=== PATIENT | female | born 1945 | race Caucasian/White ===

== ENCOUNTER → 2016-03-27 | Outpatient (REF) | payer MEDICARE, MEDICAID | LOC: M SFHCCLAY 15:10 | PROVIDERS: ATTEND Family Medicine | DX: I10 Essential (primary) hypertension (principal) ==

== ENCOUNTER → 2016-05-10 | Outpatient (CLI) | payer MEDICARE, MEDICAID ==
[2016-05-10 14:01] LABS: CALCIUM LEVEL 8.5 MG/DL (8.8-10.2); CREATININE FOR GFR 1.01 MG/DL (0.55-1.02); GLOMERULAR FILTRATION RATE 57.5 (>39); POTASSIUM SERUM 4.1 MEQ/L (3.5-5.1)
== END ==
LOC: M LAB 13:03
PROVIDERS: ATTEND Family Medicine
DX: I10 Essential (primary) hypertension (principal)

== ENCOUNTER → 2016-05-30 | Outpatient (REF) | payer MEDICARE, MEDICAID ==
[2016-05-31 11:51] LABS: MEAN CORPUSCULAR HEMOGLOBIN 26.5 pg (27.0-33.0); MEAN CORPUSCULAR HGB CONC 30.3 g/dl (32.0-36.5); MEAN CORPUSCULAR VOLUME 87.7 fl (80.0-96.0); RED CELL DISTRIBUTION WIDTH 14.4 % (11.5-14.5); WHITE BLOOD COUNT 6.2 K/mm3 (4.0-10.0)
== END ==
LOC: M SFHCCLAY 14:35
PROVIDERS: ATTEND Family Medicine
DX: E11.9 Type 2 diabetes mellitus without complications (principal); I25.10 Atherosclerotic heart disease of native coronary artery without angina pectoris; R53.83 Other fatigue
CPT/HCPCS: 83036; 85027; G0463

== ENCOUNTER → 2016-06-21 | Outpatient (CLI) | payer MEDICARE, MEDICAID ==
[2016-06-21 13:32] LABS: CREATININE FOR GFR 1.06 MG/DL (0.55-1.02); GLOMERULAR FILTRATION RATE 54.2 (>39); POTASSIUM SERUM 4.1 MEQ/L (3.5-5.1)
== END ==
LOC: M LAB 11:22
PROVIDERS: ATTEND Family Medicine
DX: I15.9 Secondary hypertension, unspecified (principal)

== ENCOUNTER 2016-07-16 12:39 | Inpatient (IN) | payer MEDICARE, MEDICAID ==
[2016-07-16] VITALS (37 sets, daily range): BP systolic 92–176; BP diastolic 50–70
[~2016-07-16] VITALS: Ht 154.9 cm; Wt 75.0 kg
[2016-07-16] MEDS ORDERED: EPINEPHrine 1MG/10ML SYRINGE 1.5IN As Ordered ONE (13:24)
[2016-07-16] MEDS ORDERED: DOPamine HCL 400 MG in APPROPRIATE DILUENT 1 EA IV SCH (13:45)
--- NOTE | 2016-07-16 13:58 | REP ---
Clinical: Chest pain. Comparison: 12/09/2015. Findings: Endotracheal tube tip approximately 2 cm from the blayne. Cardiac silhouette is stable. Diffuse alveolar and interstitial infiltrates involve the entire left hemithorax as well as the right perihilar region suggesting multifocal pneumonia. No obvious effusion. No pneumothorax. Skeletal structures stable. Impression: Diffuse alveolar and interstitial infiltrates involving the entire left hemithorax and right perihilar region. The endotracheal tube is approximately 2 cm from the blayne. Signed by Jone Jrodan MD 07/16/2016 01:49 P
[2016-07-16] MEDS ORDERED: NOREPINEPHRINE BITARTRATE 8 MG in D5W 500 ML IV SCH ×2 (14:00→14:12)
[2016-07-16 14:01] LABS: ABG BASE EXCESS -6.2 (-2.0-2.0); ABG STANDARD HCO3 18.6 MEQ/L (22.0-26.0); ABG TOTAL CO2 29.2 MEQ/L (23.0-31.0)
[2016-07-16 14:02] LABS: INR 1.24
[2016-07-16 14:08] LABS: ABG PARTIAL PRESSURE CO2 105.8 mmHg (35.0-45.0); ABG PARTIAL PRESSURE O2 37.4 mmHg (75.0-100.0); ABG pH (ARTERIAL) 7.008 UNITS (7.350-7.450)
[2016-07-16] MEDS ORDERED: ATROPINE SULF 1MG/10ML SYRINGE (J0461) IV STA ×3 (14:15)
[2016-07-16 14:18] LABS: ALBUMIN 2.8 GM/DL (3.2-5.2); ALBUMIN/GLOBULIN RATIO 0.97 (1.00-1.93); ALKALINE PHOSPHATASE 71 U/L (45-117); ALT/SGPT 60 U/L (12-78); ANION GAP 10 MEQ/L (8-16); AST/SGOT 106 U/L (15-37); BILIRUBIN,DIRECT < 0.1 MG/DL (0.0-0.2); BILIRUBIN,TOTAL 0.2 MG/DL (0.2-1.0); BLOOD UREA NITROGEN 21 MG/DL (7-18); CALCIUM LEVEL 7.1 MG/DL (8.8-10.2); CARBON DIOXIDE LEVEL 29 MEQ/L (21-32); CHLORIDE LEVEL 103 MEQ/L (98-107); CREATININE FOR GFR 1.73 MG/DL (0.55-1.02); GLOMERULAR FILTRATION RATE 30.8 (>39); GLUCOSE, FASTING 312 MG/DL (83-110); POTASSIUM SERUM 4.2 MEQ/L (3.5-5.1); SODIUM LEVEL 142 MEQ/L (136-145); TOTAL PROTEIN 5.7 GM/DL (6.4-8.2)
[2016-07-16] MEDS ORDERED: NOREPINEPHRINE 4 MG/4 ML AMP As Ordered ONE ×2 (14:18→14:29)
[2016-07-16] MEDS ORDERED: AMIODARONE 150MG/3ML INJ (J0282) IVP STA (14:20)
[2016-07-16] MEDS ORDERED: EPINEPHrine 1MG/10ML SYRINGE 1.5IN IV STA ×8 (14:22)
[2016-07-16] MEDS ORDERED: SODIUM BICARBONATE 8.4% INJ 50 ML SYRINGE As Ordered ONE (14:23)
[2016-07-16] MEDS ORDERED: SODIUM BICARBONATE 8.4% INJ 50 ML SYRINGE IV STA ×3 (14:25→14:51)
[2016-07-16 14:34] LABS: BASO % 0.4 % (0.0-1.0); EOS # 0.2 K/mm3 (0.0-0.50); EOS % 1.3 % (0.0-3.0); LARGE UNSTAINED CELL # 0.1 K/mm3 (0.0-0.4); LARGE UNSTAINED CELL % 0.8 % (0.0-4.0); MEAN CORPUSCULAR HEMOGLOBIN 26.4 pg (27.0-33.0); MEAN CORPUSCULAR HGB CONC 29.2 g/dl (32.0-36.5); MEAN CORPUSCULAR VOLUME 90.5 fl (80.0-96.0); MONO # 0.3 K/mm3 (0.0-0.8); MONO % 3.1 % (0.0-5.0); NEUTROPHILS # 7.6 K/mm3 (1.8-7.7); NEUTROPHILS % 67.5 % (36.0-66.0); PLATELET COUNT, AUTOMATED 252 k/mm3 (150-450); RED CELL DISTRIBUTION WIDTH 15.2 % (11.5-14.5); WHITE BLOOD COUNT 11.3 K/mm3 (4.0-10.0)
[2016-07-16] MEDS ORDERED: METF1000 PO (14:41)
[2016-07-16] MEDS ORDERED: FURO40TA2 PO (14:41)
[2016-07-16] MEDS ORDERED: SIMV40TA2 PO (14:41)
[2016-07-16] MEDS ORDERED: GABA-279 PO (14:41)
[2016-07-16] MEDS ORDERED: CARV25TA PO (14:41)
[2016-07-16] MEDS ORDERED: FENO54TA2 PO (14:41)
[2016-07-16] MEDS ORDERED: AMIT50TA PO (14:41)
[2016-07-16] MEDS ORDERED: HYDR-3716 PO (14:41)
[2016-07-16] MEDS ORDERED: CARI350T20 PO (14:41)
[2016-07-16] MEDS ORDERED: REST0.05 OU (14:41)
[2016-07-16] MEDS ORDERED: LISI40TAB PO (14:41)
[2016-07-16] MEDS ORDERED: ASPI81TA7 PO (14:43)
[2016-07-16] MEDS ORDERED: RANI150T PO (14:43)
[2016-07-16] MEDS ORDERED: DIPH50TA3 PO (14:43)
[2016-07-16 14:56] LABS: ABG STANDARD HCO3 26.6 MEQ/L (22.0-26.0); ABG TOTAL CO2 34.4 MEQ/L (23.0-31.0)
[2016-07-16 14:58] LABS: ABG PARTIAL PRESSURE CO2 77.4 mmHg (35.0-45.0); ABG PARTIAL PRESSURE O2 41.8 mmHg (75.0-100.0); ABG pH (ARTERIAL) 7.234 UNITS (7.350-7.450)
--- NOTE | 2016-07-16 15:06 | ECGEPIP ---
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
[2016-07-16 15:27] LABS: ADD MORPHOLOGY? YES
[2016-07-16 15:31] LABS: HYPOCHROMASIA 2+
[2016-07-16 15:32] LABS: ANISOCYTOSIS 1+
[2016-07-16] MEDS ORDERED: FUROSEMIDE 40 MG/4 ML VIAL (J1940) IV ONE ×2 (15:45→16:00)
[2016-07-16] MEDS: PANTOPRAZOLE 40MG INJ (PROTONIX) (C9113) IV SCH (16:01)
[2016-07-16 16:44] LABS: ABG HCO3 25.6 MEQ/L (22.0-26.0); ABG PARTIAL PRESSURE CO2 40.9 mmHg (35.0-45.0); ABG PARTIAL PRESSURE O2 59.6 mmHg (75.0-100.0); ABG STANDARD HCO3 25.2 MEQ/L (22.0-26.0); ABG TOTAL CO2 26.9 MEQ/L (23.0-31.0); ABG pH (ARTERIAL) 7.415 UNITS (7.350-7.450)
--- NOTE | 2016-07-16 16:53 | REP ---
Clinical: Pain and swelling . Technique: Low scale and color Doppler evaluation using linear high frequency transducer. Findings: Ultrasound examination of the right and left lower extremity deep venous structures from the common femoral vein to the popliteal vein demonstrates normal compressibility flow and wave patterns in response to respiration and augmentation. There is no evidence for deep venous thrombosis. Impression: No evidence for deep venous thrombosis. Signed by Jone Jordan MD 07/16/2016 04:45 P
--- NOTE | 2016-07-16 17:14 | CCN ---
DATE: 07/16/2016 I was called to the emergency department to evaluate this 71-year-old female post resuscitation from bradycardic arrest. 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 I was called after of pulse had been obtained with a Doppler and an endotracheal tube had been placed. On my arrival, the patient was obtunded, Zoltan coma scale 3, an endotracheal tube in been placed. The monitor was revealing narrow complex is 40-50 per minute. Femoral pulses were able to be obtained with a Doppler. No blood work has been were returned yet. A hest x-ray was just being performed and showed the endotracheal tube to be in good position and significant interstitial edema left greater than right. Pulses were lost thereafter and CPR reinitiated, epinephrine was given once again. air sampling and monitoring showed bradycardia, then narrow complex is 60-70 beats per minute with a pulse by Doppler. Central venous pressure catheter was placed promptly into the right subclavian site and IV dopamine infused, Blood gases showed hypoxemia and mixed acidosis, IV bicarb was given, dopamine was increased. Secretions were very frothy and oxygen saturation was quite low. Nebulized alcohol was given with good results. An orogastric tube and Christy catheters were placed and I contacted cardiology and the primary care provider's office for further information. At bedside, her temperature is 97, pulse rate 60, respirations 20 with mechanically ventilated breaths. Blood pressure was mean arterial of 60. HEENT: Pupils were 8 mm. I am unable to assess accurately response to light. Endotracheal tube was at 23 cm. Heart sounds were regular, distant breath sounds were diminished with rales. Abdomen: Soft. Extremities: Cool. Pulses were appreciated with Doppler. DIAGNOSTIC STUDIES: Initial arterial blood gas showed a pH of 7.00, pO2 105, CO2 37. Repeat arterial blood gases showed a pH of 7.23, pCO2 77, pO2 41. Her white cell count is 11.3, hemoglobin 87, hematocrit 29.8, platelet count 252,000. Electrolytes: Sodium 142, potassium 4.2, chloride 103, CO2 29, BUN 21, creatinine 1.73, glucose 312, bilirubin 0.2, AST 106, ALT 60, troponin was 0.02. BNP 499, albumin 2.8, PT 15, PTT 43. THE PRIMARY PROBLEM REQUIRING CRITICAL ATTENTION IS: 1. Bradycardic cardiac arrest. We are infusing dopamine. We will obtain an echocardiogram. Recheck troponins electrocardiogram and consult cardiology. 2. Acute hypoxic hypercarbic respiratory failure. Will initiate mechanical ventilation. Once in the intensive care unit we will change to pressure control and recheck arterial blood gases and place an arterial line. 3. Pulmonary edema. Will check her CVP and initiate diuretics. Given the unilateral nature of the pulmonary edema, I am questioning the possibility of pulmonary embolic disease. We will obtain an ultrasound study of the legs. 4. financial services representative have been engaged in effort to identify contacts for this patient. Family has not been present throughout the resuscitation. 3 hours and 27 minutes spent in provision of bedside critical care and coordination exclusive of procedure time.
[2016-07-16] MEDS ORDERED: GLUCOSE 4 GM CHEW TABLET PO PRN (17:15)
[2016-07-16] MEDS ORDERED: GLUCAGON FOR INJ 1 MG VIAL (J1610) SC PRN (17:15)
[2016-07-16] MEDS ORDERED: DEXTROSE 50% 50 ML SYRINGE IV PRN (17:15)
--- NOTE | 2016-07-16 17:33 | REP ---
Clinical: Pulmonary edema. Line placement. Comparison: 07/16/2016. Findings: The endotracheal tube is approximately 1.9 cm above the blayne. Nasogastric tube courses below left hemidiaphragm. Right subclavian catheter with tip in the right atrium. Complete opacification of the left hemithorax is noted suggesting underlying pleural effusion and consolidation / collapse. The right hemithorax demonstrates trace infrahilar atelectasis without effusion or pneumothorax. Impression: 1. Complete opacification of the left hemithorax compatible with effusion and consolidation / collapse. Trace right infrahilar atelectasis. 2. Lines and tubes as above. Signed by Jone Jordan MD 07/16/2016 05:25 P
--- NOTE | 2016-07-16 17:41 | ECHO ---
DATE OF PROCEDURE: 07/16/2016 REFERRING PHYSICIAN: Kris Márquez MD INDICATION: Respiratory failure, hypotension, status post cardiac arrest. HEIGHT: 155 cm WEIGHT: 75 kg DIMENSIONS: IVS: 1.2 LV: 3.7 LVPW: 1.2 LA: 3.4 Aorta 2.9 FINDINGS: The study is rather limited technical quality. Left ventricle is of normal size. Mild left ventricular hypertrophy is present. There is a septal wall motion abnormality, but overall left ventricular systolic function is normal or near normal. Right ventricle does not appear grossly enlarged. Both atria appear grossly normal. Left atrium does not appear large. Right atrium is probably enlarged. Aortic valve is mildly sclerotic, based on fair visualization it is likely tricuspid. Mitral valve exhibits mild degenerative abnormalities, but leaflet mobility is preserved. Tricuspid valve appears normal. Pulmonic valve was poorly seen but grossly appears normal. Small pericardial effusion is noted. Inferior vena cava is of normal size, but there is no appreciable collapse with respiration. Aortic root is normal. Aortic arch was not visualized. Abdominal aorta appears normal. Doppler interrogation reveals no significant aortic or mitral valve disease. There is approximately mild or moderate tricuspid insufficiency. Calculated pulmonary artery pressure is at least in low 50s, which would correspond to moderate pulmonary hypertension. Pulmonic valve is functionally competent. CONCLUSIONS: 1. Study is of fair technical quality. 2. Normal left ventricle (LV) size with mild left ventricular hypertrophy (LVH), paradoxical septal motion and overall normal or near normal LV systolic function. 3. Right ventricle does not appear grossly dilated. 4. No significant valvular disease. 5. At least moderate pulmonary hypertension. COMMENTS: Subacute bacterial endocarditis (SBE) prophylaxis is not recommended.
--- NOTE | 2016-07-16 18:28 | REP ---
Clinical: Dyspnea. Hypoxemia. Comparison: 11/12/2007. Findings: The endotracheal tube is identified with its tip at the level of the blayne and requires repositioning. A nasogastric tube is identified extending into the stomach in satisfactory position. A right subclavian catheter is identified with tip in the SVC. There is near complete consolidation of the left lung with air bronchograms noted as well as moderate right lower lobe consolidation. The mediastinum and cardiac silhouette are relatively normal for noncontrast examination with mild atherosclerotic changes noted to the coronary arteries and moderate atherosclerotic changes to the thoracic aorta. No pneumothorax. No significant pleural effusion. No obvious significant adenopathy although evaluation is limited by the lack of intravenous contrast enhancement. Surrounding musculoskeletal structures demonstrate age-related degenerative changes. Impression: 1. Endotracheal tube at the blayne requires repositioning. 2. Diffuse consolidations involving the entire left hemithorax and moderate consolidation in the right lower lobe most compatible with multifocal pneumonia. No significant effusion. No pneumothorax. Signed by Jone Jordan MD 07/16/2016 06:20 P
[2016-07-16 18:34] LABS: MEAN CORPUSCULAR HEMOGLOBIN 25.4 pg (27.0-33.0); MEAN CORPUSCULAR HGB CONC 29.7 g/dl (32.0-36.5); RED CELL DISTRIBUTION WIDTH 15.3 % (11.5-14.5); WHITE BLOOD COUNT 15.3 K/mm3 (4.0-10.0)
[2016-07-16 18:37] LABS: MEAN CORPUSCULAR VOLUME 85.4 fl (80.0-96.0)
[2016-07-16] MEDS: HumaLOG INSULIN (NovoLOG) PER UNIT SC SCH (18:40)
[2016-07-16] MEDS ORDERED: AMIODARONE 150MG/3ML INJ (J0282) ONE (18:46)
[2016-07-16] MEDS ORDERED: SODIUM BICARBONATE 8.4% INJ 50 ML SYRINGE ONE (18:46)
[2016-07-16] MEDS ORDERED: ATROPINE SULF 1MG/10ML SYRINGE (J0461) ONE (18:46)
[2016-07-16] MEDS ORDERED: EPINEPHrine 1MG/10ML SYRINGE 1.5IN ONE (18:46)
[2016-07-16] MEDS ORDERED: FUROSEMIDE 100 MG/10 ML VIAL (J1940) IV ONE (19:15)
[2016-07-16] MEDS: ALBUTEROL SULFATE 2.5 MG/0.5 ML INH NEB SOLN NEB SCH (19:41)
[2016-07-16 20:06] LABS: ABG BASE EXCESS 2.7 (-2.0-2.0); ABG DEVICE MECHAN. VENT; ABG HCO3 25.9 MEQ/L (22.0-26.0); ABG PARTIAL PRESSURE CO2 34.5 mmHg (35.0-45.0); ABG PARTIAL PRESSURE O2 75.5 mmHg (75.0-100.0); ABG STANDARD HCO3 26.9 MEQ/L (22.0-26.0); ABG TOTAL CO2 26.9 MEQ/L (23.0-31.0); ABG pH (ARTERIAL) 7.493 UNITS (7.350-7.450)
[2016-07-16] MEDS ORDERED: ETHANOL ALCOHOL 98% INJ 5ML (DEHYDRATED) NEB ONE (20:30)
[2016-07-16] MEDS: DOPamine HCL 400 MG in APPROPRIATE DILUENT 1 EA IV SCH (20:40)
[2016-07-16] MEDS: CHLORHEXIDINE GLUCONATE 0.12 % 15ML UDC (PERIDEX ORAL RINSE) MT SCH (20:42)
[2016-07-16 21:34] LABS: ABG BASE EXCESS 4.1 (-2.0-2.0); ABG HCO3 26.3 MEQ/L (22.0-26.0); ABG PARTIAL PRESSURE CO2 31.1 mmHg (35.0-45.0); ABG PARTIAL PRESSURE O2 56.4 mmHg (75.0-100.0); ABG TOTAL CO2 27.3 MEQ/L (23.0-31.0); ABG pH (ARTERIAL) 7.545 UNITS (7.350-7.450)
[2016-07-16] MEDS: HEPARIN SOD (PORCINE) 5000 UNITS/ML VIAL SQ SCH (21:43)
[2016-07-17] VITALS (74 sets, daily range): BP systolic 115–245; BP diastolic 53–111; O2SAT 94
[2016-07-17] MEDS ORDERED: ATROPINE SULF 1MG/10ML SYRINGE (J0461) ONE (02:08)
[2016-07-17] MEDS ORDERED: ETOMIDATE INJ 20MG/10ML VIAL ONE (02:08)
[2016-07-17] MEDS: DOPamine HCL 400 MG in APPROPRIATE DILUENT 1 EA IV SCH (02:45)
[2016-07-17 06:11] LABS: EOS % 0.1 % (0.0-3.0); LARGE UNSTAINED CELL % 0.4 % (0.0-4.0); LYMPH # 0.7 K/mm3 (1.5-4.5); LYMPH % 5.6 % (24.0-44.0); MEAN CORPUSCULAR HEMOGLOBIN 26.3 pg (27.0-33.0); MEAN CORPUSCULAR HGB CONC 31.9 g/dl (32.0-36.5); MEAN CORPUSCULAR VOLUME 82.3 fl (80.0-96.0); MONO # 0.5 K/mm3 (0.0-0.8); NEUTROPHILS # 10.1 K/mm3 (1.8-7.7); NEUTROPHILS % 89.8 % (36.0-66.0); PLATELET COUNT, AUTOMATED 231 k/mm3 (150-450); RED CELL DISTRIBUTION WIDTH 15.4 % (11.5-14.5); WHITE BLOOD COUNT 11.3 K/mm3 (4.0-10.0)
[2016-07-17] MEDS ORDERED: NITROGLYCERIN 2% OINT 1 GM *U/D* PKT TOP ONE (06:30)
[2016-07-17 06:32] LABS: ABG HCO3 20.8 MEQ/L (22.0-26.0); ABG PARTIAL PRESSURE CO2 24.2 mmHg (35.0-45.0); ABG PARTIAL PRESSURE O2 109.6 mmHg (75.0-100.0); ABG STANDARD HCO3 23.6 MEQ/L (22.0-26.0); ABG TOTAL CO2 21.5 MEQ/L (23.0-31.0); ABG pH (ARTERIAL) 7.552 UNITS (7.350-7.450)
[2016-07-17] MEDS: HumaLOG INSULIN (NovoLOG) PER UNIT SC SCH ×4 (06:36→18:01)
[2016-07-17 06:38] LABS: ALBUMIN 2.7 GM/DL (3.2-5.2); ALBUMIN/GLOBULIN RATIO 0.79 (1.00-1.93); BILIRUBIN,TOTAL 0.3 MG/DL (0.2-1.0); CALCIUM LEVEL 7.4 MG/DL (8.8-10.2); CREATININE FOR GFR 2.08 MG/DL (0.55-1.02); GLOMERULAR FILTRATION RATE 24.9 (>39); PHOSPHORUS LEVEL 1.5 MG/DL (2.5-4.9); POTASSIUM SERUM 4.1 MEQ/L (3.5-5.1); TOTAL PROTEIN 6.1 GM/DL (6.4-8.2)
--- NOTE | 2016-07-17 06:59 | RO ---
DATE OF PROCEDURE: 07/16/2016 PREOPERATIVE DIAGNOSIS: Hypotension. POSTOPERATIVE DIAGNOSIS: Hypotension. PROCEDURE PERFORMED: Right subclavian CVP placement. SURGEON: Dr. Kris Márquez. SYSTEM SUPPORT SPECIALIST: ESTIMATED BLOOD LOSS: The patient was seen in the emergency department intubated, mechanically ventilated, having been resuscitated, critically ill and lack of sufficient venous access and hypotensive. The skin overlying the right subclavian vein was prepped with Chloraprep draped in sterile fashion. A 25-gauge needle was used to raise a skin wheal of 1% lidocaine. Thereafter a 17-gauge introducer needle was placed in through the skin and into the right subclavian vein. Free return of venous blood was obtained. A vascular tip guidewire was advanced. Small incision made adjacent to the guidewire and a triple-lumen catheter placed over the guidewire to a distance of 18 cm. The catheter was sewn in place and a sterile dressing was applied. There were no complications.
--- NOTE | 2016-07-17 06:59 | RO ---
DATE OF PROCEDURE: 07/16/2016 PREPROCEDURE DIAGNOSIS: Hypoxemia. POSTPROCEDURE DIAGNOSIS: PROCEDURE: Right radial arterial line placement. SURGEON: Dr. Kris Márquez CLINICAL ADVISOR: ANESTHESIA: ESTIMATED BLOOD LOSS: The patient was seen in the intensive care unit intubated, mechanically ventilated, having been resuscitated from bradycardic arrest. She was found hypoxemic on arterial blood gases. The right wrist was externally rotated. The skin overlying the right radial artery was prepped with Chloraprep, draped in sterile fashion. A 25-gauge needle was used to raise a skin wheal of 1% lidocaine. Thereafter a 20-gauge introducer needle was placed in through the skin and into the right radial artery. Free return of arterial blood was obtained. A vascular tip guidewire was advanced. The needle was removed out through the skin and a 21 gauge catheter placed over the guidewire and into the right radial artery. The catheter was sewn in place. A good waveform was appreciated on the monitor. There were no complications.
[2016-07-17] MEDS: MORPHINE 2 MG/ML 1ML SYRINGE IV PRN ×4 (07:04→23:07)
[2016-07-17] MEDS: MIDAZOLAM INJ 2 MG/2 ML VIAL (J2250) IV PRN ×4 (07:28→10:04)
--- NOTE | 2016-07-17 07:36 | IPN ---
DATE: 07/17/2016 Mrs. Cabrera remains intubated. There is not much active motion even without significant sedation. She was mostly normotensive throughout the night, but eventually was able to be weaned off dopamine, but then starting this morning her blood pressure is actually very high. At the time of my evaluation, it is 200 systolic. She does not have any purposeful response to stimulation, but she opens her eyes spontaneously and she moves her extremities and a little bit of her head to painful stimulation. Vital Signs: Blood pressure 113/102. Heart rate in 80s and regular. There was not much ectopy throughout the night. She is afebrile. Saturation 97% on 80% FIO2. Her fluid balance yesterday was positive. She made approximately 440 mL of urine yesterday and 250 mL of urine today. Weight is documented at 83.4 kg. Her pupils are sluggishly responsive. There is no fixation of her gaze. Jugular venous pulse (JVP) does not look high. Lungs are relatively clear on the right with only occasional crackles. They are still diminished on the left, but air motion is lot better than yesterday. Heart: Exam reveals a paradoxically splitting second heart sound consistent with left bundle branch block. I do not appreciate any gallop or murmur. Abdomen is obese, but soft. No guarding. Bowel sounds are positive. There is stomach content suctioned via NG tube that appears bloody to some degree. Extremities are free of significant edema. Laboratory-jefferson, her ABG this morning reveals pH 7.55, pCO2 24, pO2 109 and saturation 98%. Basic metabolic panel: Potassium 4.1, BUN 26, creatinine 2.1, GFR 25, glucose 181. Troponin is down to 0.12 and CK 563. Albumin 2.8. CBC: WBC count 11.3, hematocrit 29.7, hemoglobin 9.5 and platelet count 231,000. ECG is pending. Chest x-ray is unchanged since yesterday. Heart appears mildly enlarged. Right field has some interstitial infiltrates that appear maybe slightly worse than yesterday, but the dense infiltrates on the left side are slightly improved. ASSESSMENT/PLAN: Mrs. Cabrera is a somewhat mysterious case. She is a 71-year-old female who came to my office yesterday complaining about 2-3 weeks of gradually progressive dyspnea that reached the point of orthopnea that made her come to the office. She initially was quite hypoxic, 84% on room air and that improved to high 90s with 4 liters of oxygen. She was hypertensive with systolic blood pressure between 180 and 190 and ECG revealed her chronic left bundle branch block. She was transported to [facility] emergency room by ambulance and shortly after her arrival apparently when the history was being taken by the emergency room physician she developed a bradycardic arrest, probably secondary to respiratory arrest. Prolonged cardiopulmonary resuscitation (CPR) over 30 minutes was performed that required numerous administrations of both epinephrine and atropine, but also she was defibrillated apparently twice and received amiodarone. Subsequently, there was a return of spontaneous circulation. She was brought to intensive care unit (ICU) and remained profoundly hypoxic even on the ventilator and developed very asymmetrical lung infiltrates with dense obliteration of her left lung, but her right field remained relatively clear. She looks like will not rule in for a myocardial infarction and the picture is not completely consistent with congestive heart failure. I have to say that I am not sure how to explain the asymmetrical nature and rapid development of her infiltrates. I suspect that congestive heart failure remains in the differential diagnosis. As far as the management is concerned at this point, it will be supportive. From my perspective, I am going to start her on IV nitroglycerin drip considering her hypertension. I do not plan to introduce any strong anticoagulation. In my opinion, the whole picture is not consistent with pulmonary embolism. It certainly would not explain the infiltrates that are present bilaterally. Management of the infectious disease (ID) and respiratory status as per critical care team / Dr. Márquez. I am afraid that even though the respiratory and cardiac status has improved, the prognosis will be determined by the extent of neurologic injury. RADHA
[2016-07-17] MEDS: NITROGLYCERIN/D5W 100MCG/ML 25 MG in APPROPRIATE DILUENT 1 EA IV SCH (07:38)
[2016-07-17] MEDS: CHLORHEXIDINE GLUCONATE 0.12 % 15ML UDC (PERIDEX ORAL RINSE) MT SCH ×2 (07:41→20:09)
[2016-07-17] MEDS: HEPARIN SOD (PORCINE) 5000 UNITS/ML VIAL SQ SCH ×2 (07:42→20:09)
[2016-07-17] MEDS: PANTOPRAZOLE 40MG INJ (PROTONIX) (C9113) IV SCH (07:42)
[2016-07-17 08:25] LABS: INR 1.24
--- NOTE | 2016-07-17 08:27 | ECGEPIP ---
Stationary ECG Study [facility] Test Date: 2016-07-16 Pat Name: ARIELA LAZAR Department: Room: [place] [address] Gender: F Hotel Maid: : 1945 Requested By: Kris Márquez [facility] Order Number: [id number] Reading MD: Lopez Sellers Measurements Intervals [place] Rate: 98 P: 80 CO: 131 QRS: 98 QRSD: 168 T: 120 QT: 436 QTc: 558 Interpretive Statements SINUS RHYTHM INDETERMINATE AXIS LEFT BUNDLE BRANCH BLOCK Suspect tracing earlier this same day was a junctional rhythm rather than atrial fibrillation Electronically Signed On 07-17-2016 8:26:54 EDT by Lopez Sellers
--- NOTE | 2016-07-17 08:46 | REP ---
CT Head without contrast HISTORY: Post resuscitation COMPARISON: None There is no intraparenchymal hemorrhage, acute infarct, mass or midline shift. The ventricular system is normal in appearance. There is no extra cerebral collection. There is no fracture. The visualized sinuses are clear. IMPRESSION: There is no intracranial lesion. Signed by Arturo Huddleston MD 07/17/2016 08:37 A
[2016-07-17] MEDS ORDERED: FUROSEMIDE 100 MG/10 ML VIAL (J1940) IV ONE (09:00)
--- NOTE | 2016-07-17 09:05 | REP ---
Portable chest x-ray: Single view. History: Endotracheal tube. Comparison study: July 16, 2016. Findings: Endotracheal tube is seen in good position at the level of the transverse aorta. An NG tube enters the left upper quadrant of the abdomen. EKG monitoring electrodes overlie the chest. There is a right subclavian line terminating in the expected location of the superior vena cava. There is extensive consolidation throughout much of the left lung with air bronchograms. The left hemidiaphragm is obscured as is the descending aorta. The right lung remains essentially clear. Impression: Extensive infiltrate left lung. Signed by Mynor Damon MD 07/17/2016 05:07 P
[2016-07-17 09:16] LABS: ABG BASE EXCESS 3.9 (-2.0-2.0); ABG HCO3 26.5 MEQ/L (22.0-26.0); ABG PARTIAL PRESSURE CO2 32.1 mmHg (35.0-45.0); ABG PARTIAL PRESSURE O2 84.2 mmHg (75.0-100.0); ABG STANDARD HCO3 27.9 MEQ/L (22.0-26.0); ABG TOTAL CO2 27.4 MEQ/L (23.0-31.0); ABG pH (ARTERIAL) 7.534 UNITS (7.350-7.450)
[2016-07-17] MEDS: ALBUTEROL SULFATE 2.5 MG/0.5 ML INH NEB SOLN NEB SCH ×4 (09:22→19:38)
--- NOTE | 2016-07-17 10:50 | CCN ---
DATE: 07/17/2016 CRITICAL CARE NOTE This is hospital day #2 and intensive care unit (ICU) day #2. The patient is intubated, mechanically ventilated, obtunded, and critically ill. She responds to painful stimulus with eye opening at this point. Blood pressure had been low through the night requiring pressor support. At 6 o'clock this morning, pressors were stopped and blood pressures rebounded to become elevated requiring the addition of IV nitroglycerin to moderate the blood pressure down. Temperature is 96.5, maximum temperature (t-max) for the past 24 hours 97.4, pulse rate 80, respirations 20, blood pressure, 181/82. Input and output for the past 24 hours, 1138 in and 540 out. Since midnight, 309 in and 255 out. At bedside, she is ill-appearing, intubated, mechanically ventilated. Does open her eyes to painful stimulus but is not focusing nor following any commands. She is ill-appearing. There is an ecchymotic lesion of the right cornea. Oral mucosa is pink. Endotracheal tube is at 23 cm and orogastric tube in place. Some minimally bloody drainage was appreciated. The neck is supple. There is no meningismus. Heart sounds are regular, somewhat distant. Breath sounds are more symmetric today, remain coarse over the left hemithorax with scattered rales. Chest moves symmetrically with ventilated efforts and the flow sensor on the mechanical ventilator indicates spontaneous efforts. Her abdomen is soft and I am able to appreciate bowel sounds in the right lower quadrant. There is no palpable mass. Extremities are cool. Pulses diminished but palpable in all for extremities. Diagnostic studies. Chest x-ray Shows improved aeration of the left lung, continued interstitial edema is noted. Endotracheal tube and orogastric tubes are in good position. Central line is in good position. The CT of the chest from last evening showed unilateral disease in the left with interstitial involvement. We obtained a stat head CT this morning. Report has just come in indicating no acute intracranial pathology. No intracranial bleeding. He white cell count is 11.3, hemoglobin is up to 9.5, hematocrit 29.7, platelet count is 231,000. Differential white cell count shows 89% neutrophils. Coagulation studies: PT 15, PTT 33, fibrinogen 562. Arterial blood gases showed a pH 7.55, PCO2 of 24, pO2 109 on pressure control with rate of 24. Pressure of 20 over PEEP of 10, FiO2 of 0.8. Electrolytes are sodium 138, potassium 4.1, chloride 101, CO2 30, BUN 26, creatinine 2.08 up from 1.73, glucose is 181, calcium 7.4, phosphorus is 1.5, total bilirubin 0.3, AST 71, ALT 63, alk phos 63, LDH is up slightly at 392. CPK is down to 563 and troponin is down to 0.12, albumin is 2.7. He culture of the bronchoscopy specimens sent yesterday is pending. The primary problem requiring critical attention is: 1. Acute hypoxic respiratory failure. We will decrease oxygen and minute ventilation and recheck arterial blood gases. 2. Unilateral pulmonary edema. Chest x-ray is improved. We will give additional Lasix to target a CVP of 10 or less. 3. Hypertension. The patient's blood pressure had been critically low requiring pressor support yesterday. Since 06:00 a.m., blood pressure has now rebounded and we are using IV nitroglycerin to target a systolic of 140 or less. 4. Acute kidney injury. Creatinine is up some but urine output is good. We will continue close monitoring. 5. Obtundation. I suspect this is toxic metabolic and related to the delayed return of spontaneous circulation approximately 40 minutes in the emergency room. 6. Deep vein thrombosis (DVT) prophylaxis is being addressed with subcutaneous heparin and sequential hose. 7. Ulcer prophylaxis being addressed Protonix. The patient did have some blood in the nasogastric tube but no gross bleeding. 8. Glycemic control is within acceptable range at this point. We will continue with fingerstick blood sugars and coverage. 9. Nutritional support will be initiated with tube feedings. We will use Nepro in light of the acute kidney injury. The patient's family has been contacted by telephone. There are no local relatives. Condition is critical. Prognosis is guarded. One hour and 47 minutes was spent provision of bedside critical care and coordination.
[2016-07-17] MEDS: PROPOFOL 1,000 MG in APPROPRIATE DILUENT 1 EA IV SCH ×2 (10:51→19:55)
--- NOTE | 2016-07-17 11:03 | RO ---
DATE OF PROCEDURE: 07/16/2016 PREOPERATIVE DIAGNOSIS: Opacification left hemithorax. POSTOPERATIVE DIAGNOSIS: Opacification left hemithorax. PROCEDURE PERFORMED: Fiberoptic bronchoscopy. SURGEON: Kris Márquez DO HUMAN GEOGRAPHY INSTRUCTOR: DESCRIPTION OF PROCEDURE: The patient was seen in the intensive care unit intubated, mechanically ventilated, critically ill, hypoxemic despite maximal ventilatory support. The endotracheal tube was prepared with an adapter and a fiberoptic bronchoscope placed through the adapter and into the trachea. The blayne was sharp. The right lung examined in a subsegmental fashion for any evidence of tumor, ulcer, necrosis, vessel engorgement, or mucosal irregularity, finding none. The bronchoscope was reintroduced into the left mainstem bronchus. There was a small amount of mucus; this was suctioned free. The secretions in the left airway were slightly hemorrhagic. There was no obstructing lesion. No significant mucus plugging was appreciated. The airways were investigated sequentially, and the bronchoscope was retracted out through the endotracheal tube. There were no complications.
[2016-07-17] MEDS: NYSTATIN 100,000 UNITS/GM TOPICAL PWD 15 GM TOP SCH ×2 (13:35→20:09)
[2016-07-17] MEDS ORDERED: SODIUM CHLORIDE 0.9% INJ 10 ML SYR IV PRN (14:15)
[2016-07-17] MEDS ORDERED: SLF 3 ML SYR IV PRN (14:15)
[2016-07-17 17:23] LABS: ABG BASE EXCESS 4.6 (-2.0-2.0); ABG HCO3 27.1 MEQ/L (22.0-26.0); ABG PARTIAL PRESSURE CO2 31.7 mmHg (35.0-45.0); ABG PARTIAL PRESSURE O2 69.2 mmHg (75.0-100.0); ABG STANDARD HCO3 28.6 MEQ/L (22.0-26.0); ABG pH (ARTERIAL) 7.549 UNITS (7.350-7.450)
[2016-07-17 17:40] LABS: ALBUMIN 2.6 GM/DL (3.2-5.2); CALCIUM LEVEL 7.3 MG/DL (8.8-10.2); GLOMERULAR FILTRATION RATE 26.1 (>39); MAGNESIUM LEVEL 1.8 MG/DL (1.8-2.4); PHOSPHORUS LEVEL 2.4 MG/DL (2.5-4.9); POTASSIUM SERUM 3.8 MEQ/L (3.5-5.1)
--- NOTE | 2016-07-17 21:16 | CR ---
DATE OF CONSULTATION: 07/16/2016 Mrs. Cabrera is a pleasant 71-year-old female who walked into my office this afternoon complaining about extreme dyspnea. She reported history of approximately 2-3 weeks of worsening dyspnea that, on the day of presentation, reached the point where she felt that she has to be seen. She denied any chest discomfort. On the initial evaluation in the office, her oxygen saturation was 84%. We applied 4 liters of oxygen. She had some few crackles bilaterally but for the most part, her lungs were clear and heart exam revealed regular rhythm. She had wide complex QRS on monitor, consistent with her known left bundle branch block, but she is looked acutely sick, was orthopnoeic and was not able to lay even minimally down. Consequently, ambulance was called and was she was transported to emergency room. Apparently, on the initial evaluation in the emergency room (ER), she suddenly went into respiratory arrest and bradyarrhythmic arrest. Approximately 30 minutes of cardiopulmonary resuscitation (CPR) ensued that included administrations of numerous epinephrine and atropine, but also defibrillation and amiodarone, as she had episodes of ventricular tachycardia. Eventually, the return of spontaneous circulation occurred. She was attended by Dr. Márquez. A central line was placed. She was started on dopamine and transported to intensive care. I then saw her in the evening hours. She remained intubated, minimally responsive, even without sedation and still required pressors for pressure support. Otherwise, her initial cardiac enzymes were minimally elevated and her chest x-ray revealed very asymmetrical infiltrates, with dense consolidation of the left lung field and relatively clear right lung, which was evoluting from admission bilateral interstitial infiltrates. PAST MEDICAL HISTORY 1. Coronary artery disease. She has a history of drug-eluting stent in the midright coronary artery from 10/2007. At that time, she was also felt to have medical disease in diagonal artery. Her last evaluation for ischemia was nuclear stresses in 11/2015 that revealed normal perfusion and calculated left ventricular ejection fraction (LVEF) 53%. 2. Chronic left bundle branch block. 3. Hypertension. 4. Hyperlipidemia. 5. Type 2 diabetes. 6. Chronic renal insufficiency. 7. Chronic back pain with spinal stenosis. 8. Carotid artery disease status post bilateral carotid endarterectomy. SURGICAL HISTORY: Positive for: 1. Bilateral carotid endarterectomy by Dr. Borden. 2. External fixation of left wrist fracture. 3. Colonoscopies. 4. Right rotator cuff repair. 5. Left knee meniscus repair. 6. Right knee surgery. OUTPATIENT MEDICATIONS: - amitriptyline 50 mg as needed - aspirin 81 mg daily - carisoprodol 350 mg four times a day - Colace 100 mg as needed - Coreg 12.5 mg twice a day - fenofibrate 54 mg daily - furosemide 40 mg daily - gabapentin two tablets three times a day - hydrocodone/acetaminophen 7.5/325 mg as needed - lisinopril 10 mg twice a day - metformin 500 mg two tablets twice a day - ranitidine 150 mg daily - Zocor 40 mg daily FAMILY HISTORY: Father of Alzheimer's disease and had myocardial infarction, in his 70s. Her mother of some form of carcinoma in her 90s. She also had coronary artery disease. SOCIAL HISTORY: The patient is . She is a mother of four children. She has no history of alcohol use and used to smoke years ago. ALLERGIES: There is a history of allergy to LEVAQUIN. REVIEW OF SYSTEMS: Unobtainable due to her condition. PHYSICAL EXAMINATION: Mrs. Cabrera is an elderly woman. She is currently intubated and is unconscious without sedation. Her pupils are sluggishly responsive. She does not respond to painful or verbal stimuli. Corneal reflexes are present. Lungs reveal very diminished sounds on the right side, with hyper-sonar percussion consistent with consolidation. On the right side, the lung is relatively clear with only occasional crackle. Heart examination is somewhat overshadowed by respiratory sounds, but I do not appreciate any gallop. There is paradoxically splitting second heart sound. Abdomen is obese but soft and nontender. Extremities have no edema. Peripheral pulses are present. She is making some urine. LABORATORY: Basic metabolic panel: Potassium 4.2, BUN 21, creatinine 1.73, GFR 31, glucose 317. Normal liver function tests. Initial cardiac enzymes were negative. The second set troponin 0.21. Albumin 2.88. INR 1.2. Arterial blood gasses (ABGs) initially after CPR revealed pCO2 106, pO2 37 and pH 7.0. Subsequent at 1451 were improved and the last one, at 1639 much improved with pH 7.4, pCO2 40, pO2 59% and saturation 90% which is on 100% FiO2 and ventilator. Chest x-ray: As per history of present illness. ECG reveals presence of left bundle branch block, which is known to be chronic. ASSESSMENT/PLAN: Mrs. Cabrera, unfortunately, suffered primarily a respiratory arrest with secondary bradycardic arrhythmia cardiac arrest. It is not completely clear what was the provoking mechanism. My initial working diagnosis was congestive heart failure, but subsequent evolution and chest x-ray is not overly supportive of this diagnosis. At this point, I think it is appropriate to continue supportive management. We had a long discussion with Dr. Márquez about options. Even though pulmonary infarction is in differential diagnosis, I consider is highly unlikely and I do not believe that administration of anticoagulation is appropriate in this setting. There is also no convincing data to support ischemic etiology. Besides administration of pressors and diuretics, she will be covered with proton pump inhibitors (PPIs) and wide spectrum antibiotics will be provided per critical care service. I will follow her from arrhythmic perspective and even though she had a prolonged cardiopulmonary resuscitation, she has not had any arrhythmias in the last several hours and consequently I do not see a role for preventive amiodarone administration. Depending on her neurologic status and hemodynamic status, her condition can evolve rather rapidly. For the time being, we will provide full supportive care. I will follow the patient with you. RADHA
[2016-07-17] MEDS: SLF 3 ML SYR IV SCH (22:00)
[2016-07-17] MEDS: SODIUM CHLORIDE 0.9% INJ 10 ML SYR IV SCH (23:00)
[2016-07-18] VITALS (40 sets, daily range): BP systolic 110–193; BP diastolic 43–73; O2SAT 93–96
[2016-07-18] MEDS: HumaLOG INSULIN (NovoLOG) PER UNIT SC SCH ×5 (00:16→23:49)
[2016-07-18] MEDS: MORPHINE 2 MG/ML 1ML SYRINGE IV PRN ×2 (02:54→05:16)
[2016-07-18 05:45] LABS: BASO % 0.1 % (0.0-1.0); EOS % 0.1 % (0.0-3.0); LARGE UNSTAINED CELL # 0.1 K/mm3 (0.0-0.4); LARGE UNSTAINED CELL % 0.7 % (0.0-4.0); LYMPH # 0.8 K/mm3 (1.5-4.5); LYMPH % 8.3 % (24.0-44.0); MEAN CORPUSCULAR HEMOGLOBIN 26.4 pg (27.0-33.0); MEAN CORPUSCULAR HGB CONC 31.8 g/dl (32.0-36.5); MONO # 0.5 K/mm3 (0.0-0.8); MONO % 5.4 % (0.0-5.0); NEUTROPHILS # 8.2 K/mm3 (1.8-7.7); NEUTROPHILS % 85.4 % (36.0-66.0); PLATELET COUNT, AUTOMATED 218 k/mm3 (150-450); RED CELL DISTRIBUTION WIDTH 15.4 % (11.5-14.5); WHITE BLOOD COUNT 9.6 K/mm3 (4.0-10.0)
[2016-07-18] MEDS: PROPOFOL 1,000 MG in APPROPRIATE DILUENT 1 EA IV SCH ×4 (05:45→22:45)
[2016-07-18] MEDS: SLF 3 ML SYR IV SCH ×3 (05:46→22:00)
[2016-07-18] MEDS: SODIUM CHLORIDE 0.9% INJ 10 ML SYR IV SCH ×3 (05:46→21:07)
[2016-07-18 05:58] LABS: ABG BASE EXCESS 3.1 (-2.0-2.0); ABG PARTIAL PRESSURE CO2 32.3 mmHg (35.0-45.0); ABG PARTIAL PRESSURE O2 71.8 mmHg (75.0-100.0); ABG STANDARD HCO3 27.2 MEQ/L (22.0-26.0); ABG pH (ARTERIAL) 7.523 UNITS (7.350-7.450)
[2016-07-18 06:08] LABS: ALBUMIN 2.5 GM/DL (3.2-5.2); ALBUMIN/GLOBULIN RATIO 0.81 (1.00-1.93); BILIRUBIN,TOTAL 0.3 MG/DL (0.2-1.0); CALCIUM LEVEL 7.4 MG/DL (8.8-10.2); CREATININE FOR GFR 1.78 MG/DL (0.55-1.02); GLOMERULAR FILTRATION RATE 29.8 (>39); PHOSPHORUS LEVEL 2.3 MG/DL (2.5-4.9); POTASSIUM SERUM 3.6 MEQ/L (3.5-5.1); TOTAL PROTEIN 5.6 GM/DL (6.4-8.2)
[2016-07-18] MEDS: ALBUTEROL SULFATE 2.5 MG/0.5 ML INH NEB SOLN NEB SCH ×4 (07:26→19:35)
--- NOTE | 2016-07-18 07:29 | IPN ---
DATE: 07/18/2016 Mrs. Cabrera remains intubated in intensive care unit (ICU). She had no arrhythmias overnight and there were no unusual events. Blood pressure 134/61, has been running mostly in 140s. Heart rate is in 90s. She is afebrile. Saturation is 92% on 35% of FiO2. Fluid balance yesterday of about 600 negative. Weight is 83.4. She is sedated. At this point, she does not have any response to verbal stimuli and there is some minimal movement to painful stimuli. Pupillary responses are very sluggish. She does have corneal reflex. Jugular venous pulse (JVP) does not look elevated. Lungs definitely have improved aeration. On the left side, there is better air movement and only scattered crackles. Heart exam: Somewhat muffled heart sound overshadowed by respiratory sounds but I do not appreciate any gallop or rub or murmur. Abdomen is obese but soft. No shifting dullness, positive bowel sounds. Extremities are free of edema. Peripheral pulses are of good quality. Laboratory jefferson: Basic metabolic panel reveals potassium 3.6, BUN 30, creatinine 1.8 for GFR 30 and glucose 198. Liver function tests are improving. CK is down to 295. Albumin is 2.5. CBC: WBC count only 9.6 with hemoglobin drop to 7.6, hematocrit 24, platelet count 218,000. Chest x-ray reveal ongoing improvement in interstitial infiltrates that were predominantly left-sided, but on the right side to some degree as well. No effusion as such. ASSESSMENT AND PLAN: Mrs. Cabrera is a 71-year-old female who presented with respiratory failure, I still suspect probably due to heart failure even though it is not certain, that was complicated by acute arrest. I suspect that it was principally respiratory arrest leading to secondary bradycardia. She underwent over 30 minutes of cardiopulmonary resuscitation (CPR) and now there is uncertainty about her neurologic function, but she has basic reflexes and I suppose it is appropriate to continue supportive care. From cardiac perspective, she had very trivial troponin elevation. Her left ventricular systolic function is preserved and there have been no significant arrhythmia after the CPR was completed. Consequently, I doubt that acute coronary syndrome was a player. I am going to continue IV nitroglycerin. I will introduce some IV hydralazine to decrease the need for nitroglycerin use. Her fluid balance was negative yesterday and her renal function is improving, so I do not believe that we need to increase the doses of diuretics. I do not think we should also anticoagulate patient because her hemoglobin had dropped significantly since yesterday and until we have certainty that she is not bleeding I think the risk outweighed the benefits. I will continue following the patient with you.
[2016-07-18] MEDS: hydrALAZINE INJ 20 MG/ML VIAL IV SCH ×3 (07:52→20:10)
--- NOTE | 2016-07-18 07:53 | REP ---
Portable chest, single AP view, 06:40 a.m., 07/19/2019 Comparisons are recent prior portable studies dated 07/17/2016 and 07/16/2016 and a remote study dated 12/09/2015. There is a large infiltrate occupying the entire left lung, unchanged from recent prior studies. Endotracheal tube and nasogastric tube remain in satisfactory locations, unchanged from recent prior studies. I suspect there is a small zone of discoid atelectasis peripherally in the right lung, not present on recent prior studies. Remainder of the right lung is clear. There is a right subclavian central venous catheter with the tip in the superior vena cava, unchanged from recent prior studies. Impression: Large left lung infiltrate not significantly changed from recent prior studies. The endotracheal tube, nasogastric tube and right subclavian central venous catheter are unchanged. Signed by Raji Lyman MD 07/18/2016 07:45 A
[2016-07-18] MEDS: CHLORHEXIDINE GLUCONATE 0.12 % 15ML UDC (PERIDEX ORAL RINSE) MT SCH ×2 (08:02→21:06)
[2016-07-18] MEDS: HEPARIN SOD (PORCINE) 5000 UNITS/ML VIAL SQ SCH ×2 (08:03→21:06)
[2016-07-18] MEDS: PANTOPRAZOLE 40MG INJ (PROTONIX) (C9113) IV SCH (08:03)
[2016-07-18] MEDS: NYSTATIN 100,000 UNITS/GM TOPICAL PWD 15 GM TOP SCH ×2 (08:03→21:07)
[2016-07-18] MEDS: MIDAZOLAM INJ 2 MG/2 ML VIAL (J2250) IV PRN (13:00)
--- NOTE | 2016-07-18 13:01 | CCN ---
DATE: 07/18/2016 CRITICAL CARE NOTE: The patient is seen in the intensive care unit, intubated, mechanically ventilated, critically ill. This is hospital day #3, intensive care unit (ICU) day #3. Over the night, blood pressure control has been affected with IV nitroglycerin. This morning with weaning of propofol, the patient begins biting her tube and stares off into space. There is no response to command and no purposeful movement noted. Her temperature is 99.2, pulse rate 82, respirations 18/16 delivered, blood pressure 128/60. Saturation is 93% with 35% FiO2 . Input and output for the past 24 hours is 1411 in and 1990 out. Since midnight 469 in and 335 out. Her central venous pressure this morning was 13 . At bedside, she is ill-appearing. Corneal reflexes intact. Pupils are small and react to light. There is an orogastric tube and endotracheal tube in good position. Neck is supple. Heart sounds are regular without appreciable murmur. Breath sounds are coarse over the left hemithorax, clear on the right. There is no dullness nor fremitus. Abdomen is soft. There are bowel sounds in right lower quadrant. Extremities are cool peripheral pulses are palpable in all four extremities. There is a right radial arterial line. Some edema is noted of the right extremity compared to the left. She shows no protective reflexes. Diagnostic studies were reviewed. Chest x-ray shows significant improvement in aeration of the left hemithorax compared to yesterday. Tubes and lines are in good position. There are no new infiltrates. Formal report is pending. White cell count is 9.6, hemoglobin is down to 7.6, hematocrit 24, platelet count 218,000. Differential white cell count shows 85% neutrophils. Sodium is 139, potassium 3.6, chloride 102, CO2 31, BUN 30, creatinine 1.78 down from 2, glucose is 198, glucose range up to 397, calcium is 7.4, albumin is only 2.5. AST is 27, ALT 38, alkaline phosphatase 286 down from 392, LDH is down to 295. Arterial blood gases this morning show pH 7.52, pCO2 32, pO2 71. This is on a pressure control mode of ventilation, peak pressure of 20 over PEEP of 10, FIO2 0.35, with this the patient's tidal volumes are in the 400 range. The primary problem requiring critical attention is acute respiratory failure. Arterial blood gases are better. We will decrease the ventilatory rate and continue to follow oximetry and capnography on a continuous basis. Left-sided pulmonary contusion. On close inspection of her CT scan, there are some subtle rib fractures. The suspicion is that this contusion was related to CPR. The infiltrates are clearing on the x-ray and she is responding to pressure control mode of ventilation. We will continue with this approach. Blood pressure initially profoundly hypotensive, she is now requiring antihypertensives. I appreciate the assistance of cardiology in initiating oral antihypertensives to wean away from the nitroglycerin. Neuro status. The patient is encephalopathic. There are certainly toxic metabolic reasons for this. However, given the lack of military exchange wireless manager the last 24 hours, we will obtain an MRI of her brain. Her appearance on weaning of propofol is similar to that described by the emergency room physicians on her presentation to the hospital, as it is possible she may have suffered a neurologic event related to hypertension prior to admission the hospital or hypoxemia. Anemia. The patient's hemoglobin is low this morning but there is no obvious source of bleeding. We will like to repeat her hemoglobin/hematocrit prior to deciding on transfusions. Deep vein thrombosis (DVT) prophylaxis is being addressed with sequential hose and subcutaneous heparin. Ulcer prophylaxis is being addressed with Protonix. Glycemic control is less than optimal. We will address insulin therapy with fingersticks. Nutritional support is tolerated with Nepro at this point. We will change the flow rate to 275 mL per hour and add free water. 1 hour and 15 minutes spent in provision of bedside critical care coordination, exclusive of any procedure time.
--- NOTE | 2016-07-18 14:06 | REP ---
MR BRAIN WITHOUT CONTRAST: HISTORY: Hypoxia. COMPARISON: CT 07/17/2016 Areas of increased signal intensity on diffusion weighted images are present in the cerebellum , left temporal and right parietal lobes. These are decreased in signal intensity on ADC images and are consistent with acute infarctions. Scattered punctate areas of increased signal intensity are present in the periventricular and subcortical white matter. This represents small vessel ischemic disease. There is no intraparenchymal hemorrhage, mass or midline shift. The ventricular system is normal in appearance. There is no extracerebral collection. The visualized sinuses are clear. IMPRESSION: 1. 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 There is no hemorrhage. 2. Minimal small vessel ischemic disease. Signed by Arturo Huddleston MD 07/18/2016 02:10 P
[2016-07-18] MEDS: NITROGLYCERIN/D5W 100MCG/ML 25 MG in APPROPRIATE DILUENT 1 EA IV SCH (17:55)
[2016-07-19] VITALS (22 sets, daily range): BP systolic 101–210; BP diastolic 45–79
[2016-07-19] MEDS: hydrALAZINE INJ 20 MG/ML VIAL IV SCH ×4 (02:23→22:29)
[2016-07-19] MEDS: PROPOFOL 1,000 MG in APPROPRIATE DILUENT 1 EA IV SCH ×4 (04:10→21:34)
[2016-07-19 05:36] LABS: ABG BASE EXCESS 4.2 (-2.0-2.0); ABG HCO3 27.2 MEQ/L (22.0-26.0); ABG PARTIAL PRESSURE O2 73.7 mmHg (75.0-100.0); ABG STANDARD HCO3 28.2 MEQ/L (22.0-26.0); ABG TOTAL CO2 28.2 MEQ/L (23.0-31.0); ABG pH (ARTERIAL) 7.521 UNITS (7.350-7.450); BASO % 0.1 % (0.0-1.0); EOS % 0.3 % (0.0-3.0); LARGE UNSTAINED CELL # 0.1 K/mm3 (0.0-0.4); LARGE UNSTAINED CELL % 0.9 % (0.0-4.0); LYMPH # 0.9 K/mm3 (1.5-4.5); LYMPH % 8.5 % (24.0-44.0); MEAN CORPUSCULAR HEMOGLOBIN 26.5 pg (27.0-33.0); MEAN CORPUSCULAR HGB CONC 31.4 g/dl (32.0-36.5); MEAN CORPUSCULAR VOLUME 84.2 fl (80.0-96.0); MONO # 0.5 K/mm3 (0.0-0.8); MONO % 5.7 % (0.0-5.0); NEUTROPHILS # 7.8 K/mm3 (1.8-7.7); NEUTROPHILS % 84.5 % (36.0-66.0); PLATELET COUNT, AUTOMATED 192 k/mm3 (150-450); RED CELL DISTRIBUTION WIDTH 15.6 % (11.5-14.5); WHITE BLOOD COUNT 9.2 K/mm3 (4.0-10.0)
[2016-07-19 05:56] LABS: ALBUMIN 2.5 GM/DL (3.2-5.2); ALBUMIN/GLOBULIN RATIO 0.76 (1.00-1.93); BILIRUBIN,TOTAL 0.3 MG/DL (0.2-1.0); CALCIUM LEVEL 7.6 MG/DL (8.8-10.2); CREATININE FOR GFR 1.5 MG/DL (0.55-1.02); GLOMERULAR FILTRATION RATE 36.3 (>39); PHOSPHORUS LEVEL 1.9 MG/DL (2.5-4.9); POTASSIUM SERUM 3.3 MEQ/L (3.5-5.1); TOTAL PROTEIN 5.8 GM/DL (6.4-8.2)
[2016-07-19] MEDS: SODIUM CHLORIDE 0.9% INJ 10 ML SYR IV SCH ×3 (06:10→21:37)
[2016-07-19] MEDS: SLF 3 ML SYR IV SCH ×3 (06:10→22:00)
[2016-07-19] MEDS: HumaLOG INSULIN (NovoLOG) PER UNIT SC SCH ×3 (06:11→18:10)
--- NOTE | 2016-07-19 07:21 | REP ---
Clinical: Hypoxia. Endotracheal tube. Comparison: 07/18/2016 at 06:48 a.m. Findings: Endotracheal tube terminates approximately 2.8 cm above the blayne. Nasogastric tube courses below left hemidiaphragm. Right subclavian catheter with tip in the SVC. Mediastinum and cardiac silhouette are within normal limits. The lung torres demonstrate improved aeration, but with continued opacification primarily involving the left hemithorax. Impression: 1. Lines and tubes in satisfactory position. 2. Improved aeration but with continued opacification primarily involving the left hemithorax. Signed by Jone Jordan MD 07/19/2016 07:13 A
[2016-07-19] MEDS: ALBUTEROL SULFATE 2.5 MG/0.5 ML INH NEB SOLN NEB SCH ×4 (07:48→19:28)
[2016-07-19] MEDS: HEPARIN SOD (PORCINE) 5000 UNITS/ML VIAL SQ SCH ×2 (08:08→21:35)
[2016-07-19] MEDS: CHLORHEXIDINE GLUCONATE 0.12 % 15ML UDC (PERIDEX ORAL RINSE) MT SCH ×2 (08:08→21:35)
[2016-07-19] MEDS: PANTOPRAZOLE 40MG INJ (PROTONIX) (C9113) IV SCH (08:08)
[2016-07-19] MEDS: NYSTATIN 100,000 UNITS/GM TOPICAL PWD 15 GM TOP SCH ×2 (08:09→21:35)
[2016-07-19] MEDS ORDERED: FUROSEMIDE 100 MG/10 ML VIAL (J1940) IV ONE (08:45)
[2016-07-19] MEDS ORDERED: POTASSIUM CHLORIDE 10% LIQ 20 MEQ/15 ML UDC NG ONE (08:45)
--- NOTE | 2016-07-19 08:47 | IPN ---
DATE: 07/19/2016 Mrs. Cabrera remains approximately the same. She is sedated, intubated and when the sedation is weaned off there is some un-purposeful activity. She opens her eyes. There is some bland staring. She moves somewhat her extremities but certainly nothing that would indicate that she had is oriented in any way. Blood pressure remains in the 110s to 130s. She is afebrile. Respiratory rate is 15-17. She is ventilated with 10 of PEEP. Heart rate is in 80s. Saturation is in mid to high 90s on 35% FIO2. Fluid balance yesterday was approximately equal. Weight has not been documented yet this morning. Her CVP was measured at 15. Lungs are relatively clear to auscultation on the right and even on the left. I appreciate much better aeration. Heart exam reveals a regular rhythm. There is paradoxically splitting second heart sound. I do not appreciate any murmur. Abdomen is obese, soft. Bowel sounds are present. There is minimal peripheral edema. Neurologically as above. Laboratory-jefferson, hemoglobin is down to 7, which is similar from yesterday, just 0.2 down. Hematocrit 22. Platelet count 192,000. Basic metabolic panel: Potassium 3.3, BUN 29, creatinine 1.5, glucose 287, and albumin is 2.5. CK is down to 179. Her chest x-ray reveals no obvious cardiomegaly and there continues to be bilateral, but principally left-sided infiltrates, even though they seem to be improving. ASSESSMENT/PLAN: Mrs. Cabrera is a 71-year-old female who has established coronary artery disease and who presented with approximately 2-week history of progressive shortness of breath that culminated into a sudden bradycardic cardiorespiratory arrest in the emergency room. There was successful resuscitation with return of spontaneous circulation, but unfortunately there appears to be significant central nervous system (VALUATION MANAGER) injury. At this point, she is hemodynamically much improved. She still requires quite a bit of nitroglycerin and I am going to change the IV hydralazine to oral hydralazine and give her a higher dose. I am also going to give her some dose of diuretics in order to help with blood pressure control and pulmonary congestion. I do not believe that we should safely anticoagulate the patient on account of her severe anemia. There was considerable drop in hemoglobin since admission without any obvious bleeding and without was any vigorous hydration. I have to say that it is a little perplexing and I am not quite sure how to explain this. We will continue supportive measures. I would like to put her at least an aspirin, but not until her hemoglobin improves at least slightly. Her prognosis is certainly guarded at best, but seems to be not appreciably changed since yesterday.
[2016-07-19] MEDS: **hydrALAZINE HCL** 25 MG TAB NG SCH ×3 (09:01→18:00)
[2016-07-19] MEDS: KCL 20MEQ IN 100ML SWI (KRUN) 20 MEQ in APPROPRIATE DILUENT 1 EA IV SCH ×4 (09:27→11:10)
[2016-07-19 09:55] LABS: ABG BASE EXCESS 4.1 (-2.0-2.0); ABG HCO3 26.7 MEQ/L (22.0-26.0); ABG PARTIAL PRESSURE CO2 31.9 mmHg (35.0-45.0); ABG PARTIAL PRESSURE O2 85.5 mmHg (75.0-100.0); ABG STANDARD HCO3 28.1 MEQ/L (22.0-26.0); ABG TOTAL CO2 27.7 MEQ/L (23.0-31.0); ABG pH (ARTERIAL) 7.541 UNITS (7.350-7.450)
[2016-07-19] MEDS: MIDAZOLAM INJ 2 MG/2 ML VIAL (J2250) IV PRN (10:18)
--- NOTE | 2016-07-19 10:33 | CCN ---
DATE: 07/19/2016 The patient was seen in the intensive care unit, intubated, sedate with propofol, mechanically ventilated, critically ill. Sedation was removed this morning. She does spontaneously open her eyes and withdraws from pain. I would classify her [place] coma scale as level 9. At bedside, she is ill-appearing. Temperature is 96, pulse rate 82, respirations 17 over 14 delivered, blood pressure 109/52. Ins and outs for the past 24 hours is 1581 in and 1220 out. Since midnight, 550 in and 250 out. Central venous pressure is elevated at 16. Diuretics have been given. HEENT: Her right sclera is bloody from trauma during resuscitation I suspect. The pupils are midline. There is some light reaction. Endotracheal tube is at 23 cm. Orogastric tube is in good position. Neck is supple. No meningismus. Heart: Sounds are regular without appreciable murmur. Her breath sounds are very mildly coarse over the left hemithorax compared to the right, much improvement over the last 4 hours. Chest is symmetric and moves symmetrically. There is a right subclavian catheter in place. Site is clean. The abdomen is soft with intact bowel sounds in the right lower quadrant. No palpable mass. Extremities are cool. Pulses diminished, but palpable. Right arm is edematous compared to the left. There is a right arterial catheter in place, good waveform on the monitor. DIAGNOSTIC STUDIES: White cell count is 9.2, hemoglobin 7, hematocrit 22.4, platelet count 192,000. Differential white cell count shows 84% neutrophils, 8.5 lymphs. Electrolytes are sodium 139, potassium is down to 3.3, chloride 102, CO2 31, BUN 29, creatinine 1.5 down from 1.78 yesterday, glucose is up at 287, phosphorus is 1.9, AST 30, ALT 30, and albumin 2.5. Arterial blood gases show a pH 7.52, pCO2 34, and pO2 73 on pressure control mode of ventilation. Chest x-ray shows improvement in aeration over the left hemithorax. No new infiltrates. Tubes and lines are in good position. The primary problem requiring critical attention is acute respiratory failure. Will change mechanical ventilatory settings to volume control with intermittent mandatory ventilation and proceed with weaning. Pulmonary contusion on the left, resolving by x-ray. Obtundation - MRI shows multiple infarcts. Will check a CT scan of the head today to assess for edema around these areas of infarction. I have also requested EEG to rule out non motor seizures and have spoken with neurology. They have been kind enough to review the case and will formally consult later that day. Hypertension. We are changing to hydralazine. I appreciate the assistance of cardiology. Hypokalemia and hypophosphatemia. Will replace these electrolytes and recheck at 6:00 p.m. Anemia - The patient's hemoglobin/hematocrit are at the lowest limit of acceptable normal. As the patient is aggressively diuresing and we have no source of active bleeding, I will recheck the hemoglobin/hematocrit at 6:00. Likely, she will require transfusion. Glycemic control is less than optimal. Will change to Glucerna for the tube feedings and continue with fingerstick blood sugars. Deep vein thrombosis (DVT) prophylaxis being addressed with heparin. Ulcer prophylaxis being addressed with Protonix. Nutritional support as tolerated with tube feeds at 75 mL/hour with free water. We will be changing to Glucerna. The patient's condition is critical. Prognosis is guarded. 1 hour and 18 minutes was spent in the provision of bedside critical care and coordination.
[2016-07-19] MEDS ORDERED: POTASSIUM PHOSPHATE INJ 15 MMOL in D5W 250 ML IV ONE (11:00)
--- NOTE | 2016-07-19 11:05 | REP ---
CT HEAD WITHOUT CONTRAST: HISTORY: Infarction. COMPARISON: CT 07/17/2016 and MR 07/18/2016. There is no intraparenchymal hemorrhage, definite infarct, mass or midline shift. Previously identified small strokes in the cerebellum, left temporal and right parietal lobes are not seen in the present examination. The ventricular system is normal in appearance. There is no extracerebral collection. The visualized sinuses are clear. IMPRESSION: There is no intracranial lesion. The previously noted small infarctions in the cerebellum, left temporal and right parietal lobes are not seen. Signed by Arturo Huddleston MD 07/19/2016 11:08 A
[2016-07-19] MEDS ORDERED: POLYVINYL ALCOHOL OPHTH SOLN 15 ML(LIQUITEARS) OU PRN (12:00)
[2016-07-19] MEDS: NITROGLYCERIN/D5W 100MCG/ML 25 MG in APPROPRIATE DILUENT 1 EA IV SCH ×3 (14:03→21:35)
[2016-07-19] MEDS: MORPHINE 2 MG/ML 1ML SYRINGE IV PRN (14:10)
--- NOTE | 2016-07-19 14:17 | ECGEPIP ---
Stationary ECG Study [facility] Test Date: 2016-07-17 Pat Name: ARIELA LAZAR Department: Room: [place] [address] Gender: F Cotton Weigher: DONNIE : 1945 Requested By: Cabrera Saeed Order Number: [id number] Reading MD: Lopez Sellers Measurements Intervals [place] Rate: 88 P: TN: 0 QRS: 90 QRSD: 154 T: 108 QT: 425 QTc: 515 Interpretive Statements Normal sinus rhythm Right axis deviation with somewhat low limb voltage, slow precordial R-wave progression and persistent S waves in V5 and V6; body habitus versus pulmonary disease. Left bundle branch block Slower rate than 07/16/16. Electronically Signed On 07-19-2016 14:17:34 EDT by Lopez Sellers
--- NOTE | 2016-07-19 14:45 | ECGEPIP ---
Stationary ECG Study [facility] Test Date: 2016-07-19 Pat Name: ARIELA LAZAR Department: Room: [place] [address] Gender: F Adult Neuropsychologist: MARIA : 1945 Requested By: Kris M[facility]quez [facility] Order Number: [id number] Reading MD: Lopez Sellers Measurements Intervals [place] Rate: 86 P: 74 ND: 143 QRS: 77 QRSD: 147 T: 204 QT: 442 QTc: 530 Interpretive Statements SINUS RHYTHM LEFT BUNDLE BRANCH BLOCK No change from 07/17/16 Electronically Signed On 07-19-2016 14:45:26 EDT by Lopez Sellers
[2016-07-19] MEDS: CARVedilol 6.25 MG TAB NG SCH ×2 (15:02→18:09)
[2016-07-19] MEDS: SPIRONOLACTONE 12.5MG PER 1/2 TABLET NG SCH (15:02)
[2016-07-19] MEDS ORDERED: hydrALAZINE INJ 20 MG/ML VIAL IV ONE (16:45)
[2016-07-19 18:51] LABS: ALBUMIN 2.3 GM/DL (3.2-5.2); CALCIUM LEVEL 7.5 MG/DL (8.8-10.2); CREATININE FOR GFR 1.44 MG/DL (0.55-1.02); GLOMERULAR FILTRATION RATE 38.1 (>39); PHOSPHORUS LEVEL 2.8 MG/DL (2.5-4.9)
[2016-07-20] VITALS (30 sets, daily range): BP systolic 82–165; BP diastolic 36–67
[2016-07-20] MEDS: HumaLOG INSULIN (NovoLOG) PER UNIT SC SCH ×4 (00:13→17:52)
[2016-07-20] MEDS: CARVedilol 6.25 MG TAB NG SCH ×2 (00:14→05:47)
[2016-07-20] MEDS: NITROGLYCERIN/D5W 100MCG/ML 25 MG in APPROPRIATE DILUENT 1 EA IV SCH ×7 (00:55→21:21)
[2016-07-20] MEDS: MIDAZOLAM INJ 2 MG/2 ML VIAL (J2250) IV PRN ×2 (02:10→22:19)
[2016-07-20] MEDS: hydrALAZINE INJ 20 MG/ML VIAL IV SCH ×6 (02:43→23:00)
[2016-07-20] MEDS: PROPOFOL 1,000 MG in APPROPRIATE DILUENT 1 EA IV SCH ×4 (02:55→20:14)
[2016-07-20] MEDS: SODIUM CHLORIDE 0.9% INJ 10 ML SYR IV SCH ×3 (05:48→21:19)
[2016-07-20] MEDS: SLF 3 ML SYR IV SCH ×3 (05:48→21:18)
[2016-07-20 05:53] LABS: ABG BASE EXCESS 6.6 (-2.0-2.0); ABG HCO3 29.5 MEQ/L (22.0-26.0); ABG PARTIAL PRESSURE CO2 35.1 mmHg (35.0-45.0); ABG PARTIAL PRESSURE O2 82.9 mmHg (75.0-100.0); ABG STANDARD HCO3 30.5 MEQ/L (22.0-26.0); ABG TOTAL CO2 30.6 MEQ/L (23.0-31.0); ABG pH (ARTERIAL) 7.543 UNITS (7.350-7.450)
[2016-07-20 06:18] LABS: BASO % 0.2 % (0.0-1.0); EOS # 0.1 K/mm3 (0.0-0.50); LARGE UNSTAINED CELL # 0.2 K/mm3 (0.0-0.4); LARGE UNSTAINED CELL % 1.4 % (0.0-4.0); LYMPH # 1.1 K/mm3 (1.5-4.5); MEAN CORPUSCULAR HEMOGLOBIN 26.5 pg (27.0-33.0); MEAN CORPUSCULAR HGB CONC 31.8 g/dl (32.0-36.5); MEAN CORPUSCULAR VOLUME 83.2 fl (80.0-96.0); MONO # 0.8 K/mm3 (0.0-0.8); MONO % 6.8 % (0.0-5.0); NEUTROPHILS # 9.5 K/mm3 (1.8-7.7); NEUTROPHILS % 82.5 % (36.0-66.0); PLATELET COUNT, AUTOMATED 236 k/mm3 (150-450); RED CELL DISTRIBUTION WIDTH 15.8 % (11.5-14.5); WHITE BLOOD COUNT 11.5 K/mm3 (4.0-10.0)
[2016-07-20 06:34] LABS: ALBUMIN 2.3 GM/DL (3.2-5.2); ALBUMIN/GLOBULIN RATIO 0.85 (1.00-1.93); BILIRUBIN,TOTAL 0.3 MG/DL (0.2-1.0); CALCIUM LEVEL 7.1 MG/DL (8.8-10.2); CREATININE FOR GFR 1.4 MG/DL (0.55-1.02); GLOMERULAR FILTRATION RATE 39.4 (>39); PHOSPHORUS LEVEL 2.9 MG/DL (2.5-4.9); POTASSIUM SERUM 3.9 MEQ/L (3.5-5.1)
[2016-07-20] MEDS: ALBUTEROL SULFATE 2.5 MG/0.5 ML INH NEB SOLN NEB SCH ×4 (07:37→19:44)
--- NOTE | 2016-07-20 08:27 | IPN ---
DATE: 07/20/2016 Mrs. Cabrera had a relatively uneventful day and night yesterday. I had to change her hydralazine to IV form because she did not seem to be responding to by mouth hydralazine very well. There were no arrhythmias and her status is otherwise relatively the same. Blood pressure this morning 153/48, heart rate is in the 80s and low 90s and she is afebrile. Saturation is mid 90s on 35% FIO2. Fluid balance yesterday was approximately a liter negative. Weight is 81.3 kg. She is currently on IV propofol, sedated. There are fairly sluggish pupillary responses. I do not elicit any appreciable movement with verbal or painful stimulation. Her lungs though are much better. It appears that the aeration is completely restored on the right and only minimal diminution on the left. I do not appreciate any crackles or wheezing. Heart exam with somewhat muffled heart sound, paradoxically splitting second heart sound, but no gallop or murmur. Abdomen is obese, but soft. Bowel sounds are positive. There is trace peripheral edema. Neurologic exam as above. Laboratory-jefferson, basic metabolic panel with potassium 3.9, BUN 33 and creatinine 1.4 for a GFR of 40. CBC: Hemoglobin is down to 6.9, hematocrit 21.6 and platelet count 236,000. She had some additional imaging yesterday with CT and MRI which revealed several small infarcts. ASSESSMENT/PLAN: Mrs. Cabrera is a 71-year-old female who came to hospital after 2-3 weeks of gradually progressive dyspnea and had bradycardic cardiac arrest. I suspect it was principally due to respiratory arrest. The etiology is still somewhat mysterious. My leading suspicion is still for congestive heart failure , although the picture is far from typical. Currently, the main problem is mental status. From a cardiac perspective, I will continue the same medications. I will give her diuretics again and I believe when we can correct volume a little bit better we will see improvement in blood pressure as well. I will leave hydralazine IV because it seems to be lot more effective. I think we can increase the dose of Coreg. As far as the anticoagulation is concerned, I am still very concerned about the degree of her anemia. I think it would be appropriate to transfuse the patient with at least 1 or 2 units of packed red blood cells, but I leave the decision to critical care team. Her condition remains certainly guarded, but has been relatively stable in last few days. I think ultimately the prognosis will depend principally on her neurologic status. RADHA
[2016-07-20] MEDS ORDERED: CARVedilol 6.25 MG TAB PO ONE (08:30)
[2016-07-20] MEDS ORDERED: FUROSEMIDE 40 MG/4 ML VIAL (J1940) IV SCH (09:00)
[2016-07-20] MEDS: NYSTATIN 100,000 UNITS/GM TOPICAL PWD 15 GM TOP SCH ×2 (09:00→21:18)
--- NOTE | 2016-07-20 09:11 | REP ---
Clinical: Hypoxia. Endotracheal tube. Comparison: 07/19/2016. Findings: Endotracheal tube is approximately 2.5 cm above the blayne. Nasogastric tube courses below left hemidiaphragm. Central venous catheter with tip in the SVC/right atrium. Mediastinum and cardiac silhouette are within normal limits. Improved aeration is suggested although there is continued dense consolidation in the left lower lobe/retrocardiac region as well as scattered bilateral alveolar infiltrates. Layering left effusion cannot be excluded. No pneumothorax. Skeletal structures intact. Impression: 1. Lines and tubes in satisfactory position. 2. Continued evidence for bilateral alveolar infiltrates and left lower lobe/retrocardiac consolidation with possible effusion. Signed by Jone Jordan MD 07/20/2016 09:01 A
[2016-07-20] MEDS: LISINOPRIL 5 MG TAB NG SCH (09:35)
[2016-07-20] MEDS: SPIRONOLACTONE 12.5MG PER 1/2 TABLET NG SCH (09:35)
[2016-07-20] MEDS: HEPARIN SOD (PORCINE) 5000 UNITS/ML VIAL SQ SCH ×2 (09:36→20:11)
[2016-07-20] MEDS: PANTOPRAZOLE 40MG INJ (PROTONIX) (C9113) IV SCH (09:36)
[2016-07-20] MEDS: CHLORHEXIDINE GLUCONATE 0.12 % 15ML UDC (PERIDEX ORAL RINSE) MT SCH ×2 (09:37→20:11)
--- NOTE | 2016-07-20 09:38 | CCN ---
DATE: 07/20/2016 START TIME: 835 STOP TIME: 912 I attended Vianney Cabrera here in the intensive care. The patient has been examined and the electronic record has been reviewed. No new additional medications have been added. She remains on ulcer and deep vein thrombosis (DVT ) prophylaxis. She remains on propofol. The nurses report some question of bilateral upper extremity seizures this morning or some type of new activity. Dr. Wood from neurology has requested a repeat EEG to be done off propofol if the patient is able to tolerate it. She has required increased dose of her nitroglycerin as well as Apresoline. Vital signs overnight have shown a T-max of 99.6, blood pressure 112 to 164, heart rate remains generally in the 80s with a sinus mechanism, respiratory rate generally in the 20s and she does over breathe the ventilator. Most recent laboratories show a sodium of 133, potassium 3.9, chloride 97, CO2 28, BUN 33, creatinine 1.4, glucose 283. LDH 299. Albumin 2.3. White blood cell count 11.5, hemoglobin 6.9 - essentially unchanged from yesterday and platelet count 236,000. Differential shows 82.5% segs, 0 bands. Blood gas done this morning on a SIMV of 14 and tidal volume of 460, PEEP of 5, pressure support of 12, and FiO2 of 35% shows a pH of 7.543, pCO2 35, pO2 of 82.9, and saturation 96.8%. Chest x-ray shows lines and tubes in good position. There is still some basilar atelectasis versus effusion. No other new findings. On exam, she is sedate. Pupils are brisk and react. She does not follow movement in the room. She does have diffuse mild edema. Lines and tubes noted in good position. Membranes are moist. Trachea is in the midline. Scars consistent with her prior vascular surgery. Chest shows symmetric expansion. Lung torres are fairly clear anteriorly. There is some decreased breath sounds at the bases with some fine dependent opening crackles bilaterally. Cardiac exam is generally regular. Peripheral pulses are brisk. Diffuse edema is noted. Abdomen obese, soft, with active bowel sounds. Extremities show no cyanosis or clubbing. Neurologically as outlined above and she is currently minimally responsive. Most pressing problems requiring my immediate presence at the bedside are respiratory failure requiring mechanical ventilation, status post bradycardic arrest, multiple areas of infarct by MRI, encephalopathy probably multifactorial , hypertension, atherosclerotic cardiovascular disease, anemia suspected dilutional. At this point, we await a repeat EEG. Ventilator changes have been made, but I believe weaning is going to be dependent on her mental status and volume status. I will speak with cardiology as despite increasing her diuretics she still overall remains net positive. I believe we need to really achieve a meaningful diuresis. She is tolerating her tube feeds and is meeting her nutritional goals. Ulcer and DVT prophylaxis are in place. I greatly appreciate the input of all of the consultants, especially neurology and cardiology. Overall she is critically ill. Her prognosis still remains quite guarded at best. I left the bedside at 0913 hours. 37 minutes of critical care time delivered at the bedside, not including procedures. RADHA
[2016-07-20] MEDS ORDERED: levETIRAcetam INJection 1,000 MG in D5W 100 ML IV ONE (11:00)
--- NOTE | 2016-07-20 12:15 | CR ---
DATE OF NEUROLOGY CONSULTATION: 07/19/2016 REASON FOR CONSULTATION: Altered mental status after cardiac arrest and cardiopulmonary resuscitation. HISTORY OF PRESENT ILLNESS: Ms. 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 The patient unfortunately had wide complex QRS on monitor consistent with known left bundle branch block. She looked acutely sick, was orthopneic and was not able to lay down in her doctor's office. She was transported to the emergency room via ambulance where she had approximately 30 minutes or more of cardiopulmonary resuscitation due to being found with pulseless electrical activity. The patient received numerous rounds of epinephrine and atropine. The patient also had defibrillation amiodarone and episodes of ventricular tachycardia. Eventually, she did return to spontaneous circulation. A central line was placed. The patient was intubated. She was started on dopamine transported to the intensive care unit. The patient has been off and on of propofol. When propofol was discontinued, the patient has significant elevated blood pressures. A head CT initially did not show any acute intracranial process. The patient did have a MRI of the brain which showed right parietal ischemic stroke as well as left cerebellar ischemic stroke as well as other scattered areas of left hemispheric subcortical small infarcts. The patient off the sedation usually is staring blankly, looking forward, is hardly moving her arms and legs spontaneously. She does maintain respirations over the ventilator and does have all of her brain stem function intact. She does not participate in any meaningful examination and participate to any voluntary movements of her arms or legs. She does not follow commands. She does not engage any eye contact and does not track with her eyes. The patient did have an EEG earlier which showed delta slowing diffusely with triphasic waves suggestive of diffuse encephalopathy. There was no seizure-like activity noted. The patient did not have any witnessed seizures. The patient does not have any signs of infection nor any specific metabolic derangement at the present time. PAST MEDICAL HISTORY: Coronary artery disease, history of drug eluting stent mid right coronary artery 10/2007. Chronic left bundle branch block. Hypertension. Hyperlipidemia. Type 2 diabetes. Chronic renal insufficiency. Lumbar spinal stenosis. Carotid artery disease, status post bilateral carotid endarterectomy. PAST SURGICAL HISTORY: Bilateral carotid endarterectomy by Dr. Nguyen. External fixation of left wrist fracture. Colonoscopy. Right rotator cuff repair. Left knee meniscus repair. Right knee surgery. HOME MEDICATIONS: - amitriptyline 50 mg by mouth at bedtime - aspirin 81 mg by mouth every day - carisoprodol 350 mg by mouth four times a day - Colace 100 mg by mouth as needed (p.r.n.) - Coreg 12.5 mg by mouth twice a day - fenofibrate 54 mg by mouth every day - furosemide 40 mg by mouth every day - gabapentin 2 tablets by mouth three times a day - hydrocodone/acetaminophen 7.5/325 mg by mouth as needed - lisinopril 10 mg by mouth twice a day - metformin 500 mg 2 tablets by mouth twice a day - ranitidine 150 mg by mouth every day - Zocor 40 mg by mouth every day FAMILY HISTORY: Father with Alzheimer's disease. SOCIAL HISTORY: The patient does not have a history use of alcohol, is a former tobacco user and does not use recreational drugs. ALLERGIES: LEVAQUIN. PHYSICAL EXAMINATION: Blood pressure 156/49, pulse rate 84, respiratory rate is 24, temperature is 98.3 degrees Fahrenheit, oxygenation 96% on ventilation with 35% FIO2. Current height 5 foot 1 inches, current weight is 83.4 kg. 15 to 20 minutes off of propofol, the patient's pupils are 3-1/2 mm, round and reactive to light. Doll's eyes present. Corneal reflexes are present. Gag reflex is present. The patient does have normal symmetrical facial grimacing to noxious stimuli intranasally. The patient does not withdraw to noxious stimuli in all four extremities. With significant movement, the patient may withdraw her toes slightly on her right foot compared to the left. Babinski signs are absent. Tone is normal in the upper and lower extremities. The rest of examination not possible due to the patient's current medical condition and cognitive state. ASSESSMENT: 1. Diffuse encephalopathy in setting of recent cardiopulmonary arrest with evidence of ischemic strokes involving the right parietal region, left cerebellum and a few scattered areas in ht left subcortical cerebral hemisphere. PLAN: 1. Obtain EEG off of propofol. 2. Continue to treat supportively. The patient is now a few days post initial cardiopulmonary arrest, which occurred on 07/17/2016. The patient can likely have normal blood pressure now and does not need to have blood pressure augmentation. Recommend normalizing blood pressure with systolic pressures less than 140. Continue aspirin 81 mg by mouth daily. 3. Echocardiogram did not reveal any intracardiac thrombus. Hypokinesis of the septal wall was noted. Left ventricular enlargement was noted. Ejection fraction is adequate. 4. If seizure activity is noted in the future can consider starting of Keppra. May consider repeating EEG after a few days to assess for any improvement in encephalopathy. Repeat head CT was requested and did not show any ischemic areas on the head CT. Three is no significant edema onto the fourth ventricle from the left cerebellar ischemic stroke. No intracerebral hemorrhage was noted. Will continue to follow.
[2016-07-20] MEDS: FUROSEMIDE 40 MG/4 ML VIAL (J1940) IV SCH ×3 (15:22→17:58)
--- NOTE | 2016-07-20 18:32 | EEG ---
DATE OF PROCEDURE: 07/19/2016 REFERRING PHYSICIAN: Dr. Kris Márquez DIAGNOSIS: Altered mental status. The patient is status post cardiac arrest and resuscitation. EEG NUMBER: [id number] HISTORY: The patient is a 71-year-old woman who is status post resuscitation from bradycardic cardiac arrest. She is on mechanical ventilator and is sedated. This EEG was done to evaluate degree of encephalopathy and epileptic potential. She is currently on nitroglycerin, propofol, Protonix, hydralazine, Lasix, Versed, etcetera. TECHNICAL DESCRIPTION: This digital EEG was recorded by 21 scalp, ear and two EKG electrodes and was reviewed in bipolar and referential montages following reformatting in 10-20 international electrode placement system. INTERPRETATION: The patient remained intubated and on sedatives throughout this study. Background rhythm consisted of 3-4 Hz delta activity measuring 15-70 microvolts in amplitude. Intermittent bilateral frontally predominant triphasic waves were also noted. No clear sleep stages were identified. Hyperventilation could not be performed. Photic stimulation remained unremarkable. EKG revealed paced rhythm or left bundle branch block pattern. No epileptiform abnormalities were seen. No clinical or electrographic seizures were recorded. CONCLUSION: This EEG in a mechanically ventilated patient on sedation is abnormal due to presence of generalized slowing, disorganization of background and bilateral frontally predominant triphasic waves consistent with nonspecific diffuse cerebral dysfunction such as seen in moderate to severe encephalopathy due to multiple potential causes including toxic, metabolic, autoimmune, infectious, medication related or multifocal structural brain abnormalities. No epileptiform abnormalities were seen. Clinical correlation is recommended.
--- NOTE | 2016-07-20 18:43 | EEG ---
DATE OF PROCEDURE: 07/20/2016 DIAGNOSIS: Altered mental status and jerking and shaking of upper extremities. EEG #: [id number]. HISTORY: The patient is a 71-year-old woman who is status post bradycardic cardiac arrest and cardiac resuscitation. She is mechanically ventilated. She has off sedatives. She has tremor and myoclonic jerks of upper extremities. EEG was done to rule out epileptic potential. She is currently on hydralazine, Lasix, morphine, etc. TECHNICAL DESCRIPTION: This digital EEG was recorded by 21 scalp ear and two EKG electrodes and was reviewed in bipolar and referential montages following reformatting in 10-20 international electrode placement system. INTERPRETATION: The patient was noted to be in drowsy states during this EEG. She is mechanically ventilated. Background rhythm consisted of 3-4 Hz delta activity measuring 15-50 microvolts in amplitude. Bilateral frontally predominant triphasic waves were noted. The patient had four episodes of right arm tremor and one episode of left arm tremor. Right arm tremor was associated with 6-7 Hz theta activity in left parietal and temporal head region with clear evolution. Initially low voltage high frequency activity was noted which gradually changed to low-frequency high amplitude activity. These episodes lasted for 35-50 seconds. EKG revealed paced rhythm or left bundle branch block pattern. CONCLUSION: This EEG in a mechanically ventilated patient is abnormal due to presence of right arm tremor and shaking with correlating electrographic focal seizures in left temporal and parietal head region consistent with focal cortical structural or functional abnormality with epileptic potential. In addition generalized slowing and disorganization of background is consistent with nonspecific diffuse cerebral dysfunction such as seen in encephalopathy due to multiple potential causes. Clinical correlation is recommended.
[2016-07-20] MEDS: CARVedilol 12.5 MG TAB PO SCH (20:15)
[2016-07-20] MEDS: levETIRAcetam INJection 750 MG in D5W 100 ML IV SCH (20:15)
[2016-07-20] MEDS ORDERED: levETIRAcetam INJection 500 MG in D5W MINI-BAG PLUS 100 ML IV SCH (21:00)
[2016-07-21] VITALS (25 sets, daily range): BP systolic 100–193; BP diastolic 36–63
[2016-07-21] MEDS: FUROSEMIDE 40 MG/4 ML VIAL (J1940) IV SCH ×3 (00:33→11:53)
[2016-07-21] MEDS: HumaLOG INSULIN (NovoLOG) PER UNIT SC SCH ×4 (00:51→18:06)
[2016-07-21] MEDS: PROPOFOL 1,000 MG in APPROPRIATE DILUENT 1 EA IV SCH ×3 (01:47→16:55)
[2016-07-21] MEDS: hydrALAZINE INJ 20 MG/ML VIAL IV SCH ×6 (03:25→23:21)
[2016-07-21] MEDS: NITROGLYCERIN/D5W 100MCG/ML 25 MG in APPROPRIATE DILUENT 1 EA IV SCH ×2 (04:14→11:55)
[2016-07-21 05:31] LABS: ABG BASE EXCESS 4.8 (-2.0-2.0); ABG PARTIAL PRESSURE CO2 35.5 mmHg (35.0-45.0); ABG PARTIAL PRESSURE O2 81.8 mmHg (75.0-100.0); ABG STANDARD HCO3 28.8 MEQ/L (22.0-26.0); ABG TOTAL CO2 29.1 MEQ/L (23.0-31.0); ABG pH (ARTERIAL) 7.515 UNITS (7.350-7.450)
[2016-07-21] MEDS: SLF 3 ML SYR IV SCH ×3 (06:05→22:15)
[2016-07-21 06:32] LABS: BASO % 0.4 % (0.0-1.0); EOS # 0.2 K/mm3 (0.0-0.50); EOS % 1.3 % (0.0-3.0); LARGE UNSTAINED CELL # 0.2 K/mm3 (0.0-0.4); LARGE UNSTAINED CELL % 1.2 % (0.0-4.0); LYMPH % 7.7 % (24.0-44.0); MEAN CORPUSCULAR HEMOGLOBIN 27.1 pg (27.0-33.0); MEAN CORPUSCULAR HGB CONC 32.3 g/dl (32.0-36.5); MEAN CORPUSCULAR VOLUME 84.1 fl (80.0-96.0); MONO # 0.8 K/mm3 (0.0-0.8); MONO % 6.7 % (0.0-5.0); NEUTROPHILS # 10.3 K/mm3 (1.8-7.7); NEUTROPHILS % 82.7 % (36.0-66.0); PLATELET COUNT, AUTOMATED 231 k/mm3 (150-450); RED CELL DISTRIBUTION WIDTH 15.4 % (11.5-14.5); WHITE BLOOD COUNT 12.5 K/mm3 (4.0-10.0)
[2016-07-21] MEDS: SODIUM CHLORIDE 0.9% INJ 10 ML SYR IV SCH ×3 (06:36→22:16)
[2016-07-21 06:47] LABS: ALBUMIN 2.4 GM/DL (3.2-5.2); ALBUMIN/GLOBULIN RATIO 0.8 (1.00-1.93); BILIRUBIN,TOTAL 0.6 MG/DL (0.2-1.0); CALCIUM LEVEL 7.3 MG/DL (8.8-10.2); CREATININE FOR GFR 1.33 MG/DL (0.55-1.02); GLOMERULAR FILTRATION RATE 41.7 (>39); PHOSPHORUS LEVEL 4.3 MG/DL (2.5-4.9); TOTAL PROTEIN 5.4 GM/DL (6.4-8.2)
[2016-07-21] MEDS: ALBUTEROL SULFATE 2.5 MG/0.5 ML INH NEB SOLN NEB SCH ×4 (07:25→19:23)
--- NOTE | 2016-07-21 07:44 | REP ---
Clinical: Endotracheal tube placement. Comparison: 07/20/2016. Findings: The endotracheal tube is approximately 1.8 cm above the blayne. Nasogastric tube courses below left hemidiaphragm. Right subclavian catheter with tip in the SVC. The mediastinum and cardiac silhouette are stable and mild cardiomegaly cannot be excluded. Left lower lobe opacity is unchanged again suggesting consolidation and possible layering effusion. No pneumothorax. The right hemithorax is stable and relatively well aerated. Impression: 1. Endotracheal tube approximately 1.8 cm above the blayne. 2. Continued evidence for left lower lobe opacity suggesting consolidation and effusion similar to prior examination. Signed by Jone Jordan MD 07/21/2016 07:35 A
[2016-07-21] MEDS: PANTOPRAZOLE 40MG INJ (PROTONIX) (C9113) IV SCH (09:04)
[2016-07-21] MEDS: HEPARIN SOD (PORCINE) 5000 UNITS/ML VIAL SQ SCH ×2 (09:04→22:15)
[2016-07-21] MEDS: levETIRAcetam INJection 750 MG in D5W 100 ML IV SCH (09:04)
[2016-07-21] MEDS: SPIRONOLACTONE 12.5MG PER 1/2 TABLET NG SCH (09:04)
[2016-07-21] MEDS: LISINOPRIL 5 MG TAB NG SCH (09:05)
[2016-07-21] MEDS: CARVedilol 12.5 MG TAB PO SCH ×2 (09:05→22:14)
[2016-07-21] MEDS: CHLORHEXIDINE GLUCONATE 0.12 % 15ML UDC (PERIDEX ORAL RINSE) MT SCH ×2 (09:06→22:16)
[2016-07-21] MEDS: NYSTATIN 100,000 UNITS/GM TOPICAL PWD 15 GM TOP SCH ×2 (09:06→22:15)
[2016-07-21] MEDS: MIDAZOLAM INJ 2 MG/2 ML VIAL (J2250) IV PRN ×5 (10:03→22:38)
--- NOTE | 2016-07-21 10:26 | CCN ---
DATE OF VISIT: 07/21/2016 START TIME: 0805 hours STOP TIME: 0841 hours I again attended Mrs. Cabrera. She remains intubated, sedated, and mechanically ventilated. I was present this morning during her sedation vacation. She has return of what is most likely seizure activity to the upper extremities as confirmed by EEG yesterday. Midst this, she does at least move her extremities to noxious stimuli, but does not respond to voice or follow commands. Pupils do react briskly. T-max overnight 100.1, blood pressure 100s to 190s systolic and she remains on nitroglycerin drip as well as hydralazine through cardiology. Heart rate 70s to 80s with a sinus mechanism. Respiratory rate generally in the 20s. Intake and output the last 24 hours ending at midnight last night 4370 mL in with 2510 mL out. Most recent laboratories shows a white blood cell count of 12.5, hemoglobin 8.5 after being transfused 2 units yesterday. Platelet count 231,000, 82% segs, no bands. Sodium 134, potassium 4.0, chloride 94, CO2 31, BUN 40 with a creatinine of 1.33, which is down from yesterday. Glucose 223. Most recent arterial blood gas done on an SMV of 8, tidal volume 460, PEEP of 8, pressure support of 12 and an FiO2 of 35%. Chest x-ray shows lines and tubes in good position. I do believe that there is some increased edema today. I cannot rule out early infiltrate. On exam, neuro status as outlined above. Trachea is in the midline. Chest clear anteriorly with some basilar dependent crackles. Expansion symmetric. Cardiac exam I believe shows at least 2-3/6 systolic murmur heard across the precordium. It does radiate into the carotids. Peripheral pulses are markedly diminished. Diffuse edema is unchanged. Abdomen is soft. There are active bowel sounds. No organomegaly or masses. Extremities again show diffuse edema. Neurologically as outlined above. The most pressing problems requiring my presence at the bedside: 1. Acute respiratory failure requiring mechanical ventilation. 2. Status post cardiopulmonary arrest. 3. Multiple CVAs by MRI and CT scan. 4. Seizure disorder, status post the above. 5. Atherosclerotic cerebrovascular disease. 6. Anemia status post transfusion. I have spoken at length with Dr. Rasheed from cardiology this morning. Despite increasing her diuretics, she is still net positive and we need to really achieve a net negative. We will limit her fluids as best we can. He will manage her diuresis. I wonder now if there are other agents if we can add for her hypertension since her creatinine is improved, as she does get a significant amount of nitroglycerin. She is tolerating her tube feeds. Ulcer and deep vein thrombosis (DVT) prophylaxis are in place. I still believe the major source of her anemia is dilutional, but clearly this has improved with transfusion. Will monitor this closely. I had a long discussion with the daughter of her healthcare proxy yesterday. Her named healthcare proxy unfortunately is at an advanced age and in an assisted living center and her daughter tells me she has early dementia and really is not able to make decisions. The daughter has been helpful to us. At this point, I deeply appreciate the help of the consultants. Neurology feels at this point there is still a possibility she may regain significant neurological function. They are helping us control her seizures. If she has had no improvement in her mental status by mid next week, at that point it would be appropriate to proceed with tracheostomy. Given her fever, we will recheck a sputum. I will continue as outlined above. Overall she remains quite critically ill. Prognosis remains guarded at best. I left the bedside at 0841 hours. 36 minutes of critical care time was delivered at the bedside, not including procedures.
[2016-07-21] MEDS: metOLazone 2.5 MG TAB PO SCH (11:03)
[2016-07-21] MEDS ORDERED: levETIRAcetam INJection 250 MG in D5W 100 ML IV ONE (15:00)
[2016-07-21] MEDS ORDERED: LORazepam 2 MG/ML VIAL (J2060) IV STA (16:09)
[2016-07-21] MEDS ORDERED: LACOSAMIDE 10MG/ML 20ML VIAL (VIMPAT) (C9254) IV ONE (16:15)
[2016-07-21] MEDS: FUROSEMIDE 100 MG/10 ML VIAL (J1940) IV SCH (16:39)
[2016-07-21] MEDS ORDERED: levETIRAcetam INJection 1,000 MG in D5W 100 ML IV SCH (21:00)
--- NOTE | 2016-07-21 21:21 | IPN ---
DATE: 07/21/2016 Patient was seen earlier this morning. Her nurse was at bedside. She was intubated and mechanically ventilated, sedated. She was not in any acute distress. I did not notice any spontaneous motion activities. It seemed that she was initially admitted on 07/16/2016 with cardiac arrest that was thought to be respiratory in nature and associated bradycardia. Since then, she has been intubated and sedated. She is being managed by time study statistician and neurology. It seems that she is being weaned off the ventilator, but she is congested. She has been in positive fluid balance for the last 3 days. Case was discussed earlier today with time study statistician. VITAL SIGNS: Revealed a blood pressure when I saw her earlier today of 131/60 with a pulse of 85, and her oxygen saturation was 91% on an FiO2 of 0.35. She has been afebrile. For 07/20/2016, she was in a positive fluid balance of 1.8 liters, and for July 19, her fluid balance was positive for 1 liter. HEAD: Atraumatic. NECK: Supple with extended jugular. LUNGS: Revealed bilateral rhonchi but no wheezing. HEART: Revealed regular at bedtime without gallops. The point of maximal impulse (PMI) is not displaced. There is no rub. ABDOMEN: Soft. EXTREMITIES: Positive for pedal edema. NEUROLOGIC: Not done. LABORATORY DATA: CBC revealed a WBC of 12.5, hemoglobin 8.5, hematocrit 26.4, and platelets 231,000. BMP today revealed a sodium of 134, potassium 4.0, chloride 94, CO2 of 31, BUN 40, creatinine 1.3, GFR 41.7, fasting glucose 223, and calcium 7.3. Liver enzymes revealed a total bilirubin of 0.3, AST 59, ALT 38, alkaline phosphatase 87. Total protein and albumin were 5.4 and 2.4, respectively. ABG done today revealed a pH of 7.51, pCO2 of 35.5, and pO2 of 81.8 with an oxygen saturation of 96%. Chest x-ray was reviewed and revealed mild cardiomegaly and probably left pleural effusion and infiltrate Echocardiogram done on 07/16/2016 revealed a normal left ventricular ejection fraction (LVEF) with mild concentric left ventricular hypertrophy, dilated right ventricle. No significant valvular heart disease. At least moderate pulmonary hypertension was reported. IMPRESSION: Status post respiratory failure and cardiac arrest in this 71-year-old woman with a history of coronary artery disease, hypertension, hyperlipidemia, diabetes mellitus, chronic kidney disease, peripheral arterial disease involving her carotid arteries cerebrovascular accidents (CVAs) with bilateral carotid endarterectomy, arthritis, and chronic left bundle branch block. The etiology of her respiratory failure is not quite understood. It seemed there was no cardiac event. Her serum troponin was non-diagnostic. LVEF is normal with dilated right heart chambers. CT of the chest done on admission but without contrast revealed diffuse consolidations involving the entire left hemithorax and moderate consolidation in the right lower lobe, most likely multifocal pneumonia. Head CT revealed multiple infarcts. MRI of the brain without contrast revealed multiple infarcts and small-vessel ischemic disease. At this present time, as discussed with time study statistician, will try to keep her on a negative fluid balance; therefore, she can be extubated, and I will increase her furosemide. She also was started on Zaroxolyn. Her blood pressure has been good, and for this reason the intravenous (IV) nitroglycerine will be discontinued. Will monitor her BUN, creatinine, and serum potassium. I will review her echocardiogram, and, if needed, will have a repeat limited echocardiogram for reassessment. I will monitor her along with you over the weekend. As you know, her prognostic is guarded. RADHA
[2016-07-21] MEDS: LACOSAMIDE 10MG/ML 20ML VIAL (VIMPAT) (C9254) IV SCH (23:20)
[2016-07-21] MEDS: LORazepam 2 MG/ML VIAL (J2060) IV PRN (23:20)
[2016-07-22] VITALS (23 sets, daily range): BP systolic 92–177; BP diastolic 37–76
[2016-07-22] MEDS ORDERED: levETIRAcetam INJection 500 MG in D5W MINI-BAG PLUS 100 ML IV ONE ×2
[2016-07-22] MEDS: FUROSEMIDE 100 MG/10 ML VIAL (J1940) IV SCH ×4 (00:24→18:13)
[2016-07-22] MEDS: HumaLOG INSULIN (NovoLOG) PER UNIT SC SCH ×4 (00:24→18:14)
[2016-07-22] MEDS: MIDAZOLAM INJ 2 MG/2 ML VIAL (J2250) IV PRN ×8 (00:46→11:39)
[2016-07-22] MEDS ORDERED: LORazepam 2 MG/ML VIAL (J2060) IV ONE (01:45)
[2016-07-22] MEDS ORDERED: PROPOFOL 1,000 MG/100 ML VIAL As Ordered ONE (01:52)
[2016-07-22] MEDS ORDERED: PROPOFOL 1,000 MG in APPROPRIATE DILUENT 1 EA IV SCH (02:00)
[2016-07-22] MEDS: PROPOFOL 1,000 MG in APPROPRIATE DILUENT 1 EA IV SCH ×2 (02:11→09:13)
[2016-07-22] MEDS: hydrALAZINE INJ 20 MG/ML VIAL IV SCH ×6 (03:18→23:11)
[2016-07-22 05:00] LABS: BASO % 0.1 % (0.0-1.0); EOS # 0.1 K/mm3 (0.0-0.50); EOS % 0.9 % (0.0-3.0); LARGE UNSTAINED CELL # 0.2 K/mm3 (0.0-0.4); LARGE UNSTAINED CELL % 1.2 % (0.0-4.0); LYMPH # 1.1 K/mm3 (1.5-4.5); LYMPH % 7.4 % (24.0-44.0); MEAN CORPUSCULAR HEMOGLOBIN 27.1 pg (27.0-33.0); MEAN CORPUSCULAR HGB CONC 32.4 g/dl (32.0-36.5); MEAN CORPUSCULAR VOLUME 83.8 fl (80.0-96.0); MONO # 0.9 K/mm3 (0.0-0.8); MONO % 6.8 % (0.0-5.0); NEUTROPHILS # 10.5 K/mm3 (1.8-7.7); NEUTROPHILS % 83.7 % (36.0-66.0); PLATELET COUNT, AUTOMATED 248 k/mm3 (150-450); RED CELL DISTRIBUTION WIDTH 15.9 % (11.5-14.5); WHITE BLOOD COUNT 12.6 K/mm3 (4.0-10.0)
[2016-07-22 05:26] LABS: ABG BASE EXCESS 4.5 (-2.0-2.0); ABG HCO3 27.7 MEQ/L (22.0-26.0); ABG PARTIAL PRESSURE CO2 35.9 mmHg (35.0-45.0); ABG PARTIAL PRESSURE O2 86.8 mmHg (75.0-100.0); ABG STANDARD HCO3 28.5 MEQ/L (22.0-26.0); ABG TOTAL CO2 28.9 MEQ/L (23.0-31.0); ABG pH (ARTERIAL) 7.506 UNITS (7.350-7.450)
[2016-07-22 05:48] LABS: ALBUMIN 2.2 GM/DL (3.2-5.2); ALBUMIN/GLOBULIN RATIO 0.73 (1.00-1.93); BILIRUBIN,TOTAL 0.5 MG/DL (0.2-1.0); CALCIUM LEVEL 6.9 MG/DL (8.8-10.2); CREATININE FOR GFR 1.84 MG/DL (0.55-1.02); GLOMERULAR FILTRATION RATE 28.7 (>39); PHOSPHORUS LEVEL 4.5 MG/DL (2.5-4.9); POTASSIUM SERUM 3.8 MEQ/L (3.5-5.1); TOTAL PROTEIN 5.2 GM/DL (6.4-8.2)
[2016-07-22] MEDS: SLF 3 ML SYR IV SCH ×2 (05:48→14:00)
[2016-07-22] MEDS: SODIUM CHLORIDE 0.9% INJ 10 ML SYR IV SCH ×3 (05:55→23:11)
[2016-07-22] MEDS ORDERED: LACOSAMIDE 10MG/ML 20ML VIAL (VIMPAT) (C9254) IV SCH (06:00)
[2016-07-22] MEDS: ALBUTEROL SULFATE 2.5 MG/0.5 ML INH NEB SOLN NEB SCH ×4 (07:15→19:34)
[2016-07-22] MEDS: LORazepam 2 MG/ML VIAL (J2060) IV PRN (07:36)
[2016-07-22] MEDS: HEPARIN SOD (PORCINE) 5000 UNITS/ML VIAL SQ SCH ×2 (08:10→20:51)
[2016-07-22] MEDS: CHLORHEXIDINE GLUCONATE 0.12 % 15ML UDC (PERIDEX ORAL RINSE) MT SCH ×2 (08:10→20:51)
[2016-07-22] MEDS: LACOSAMIDE 10MG/ML 20ML VIAL (VIMPAT) (C9254) IV SCH ×2 (08:10→20:52)
[2016-07-22] MEDS: PANTOPRAZOLE 40MG INJ (PROTONIX) (C9113) IV SCH (08:10)
[2016-07-22] MEDS: CARVedilol 12.5 MG TAB PO SCH ×2 (08:11→20:51)
--- NOTE | 2016-07-22 08:12 | REP ---
Clinical: Endotracheal tube placement. Comparison: 07/21/2016. Findings: Endotracheal tube is approximately 2.7 cm above the blayne. Nasogastric tube courses below left hemidiaphragm. Right subclavian catheter with tip in the SVC. Mediastinum and cardiac silhouette are stable. Dense consolidation in the left lower lobe and retrocardiac region remains unchanged and likely represents consolidation. Minimal right basilar atelectasis suggested. No pneumothorax. Skeletal structures stable. Impression: 1. Endotracheal tube in satisfactory position. 2. Considerable dense consolidation in the left lower lobe/retrocardiac region unchanged. Signed by Jone Jordan MD 07/22/2016 08:05 A
[2016-07-22] MEDS: NYSTATIN 100,000 UNITS/GM TOPICAL PWD 15 GM TOP SCH ×2 (08:13→20:52)
[2016-07-22] MEDS: LISINOPRIL 5 MG TAB NG SCH (08:13)
[2016-07-22] MEDS: LevoFLOXacin IV 500 MG in APPROPRIATE DILUENT 1 EA IV SCH (09:07)
[2016-07-22] MEDS: levETIRAcetam INJection 1,500 MG in D5W 100 ML IV SCH ×2 (09:07→20:52)
--- NOTE | 2016-07-22 09:19 | CCN ---
DATE OF VISIT: 07/22/2016 START TIME: 814 STOP TIME: 08 I again attended Vianney Cabrera here in the intensive care unit. The patient has been examined. Chart/electronic medical record and radiographic studies have been reviewed. Maximum temperature (Tmax) overnight 99.5, blood pressure 92-145 systolic. Heart rate generally in the 70s-80s with a sinus mechanism. Respiratory rate generally in the 20s. She does overbreathe the ventilator. Intake and output (I and O) through midnight last night 4009 mL in with 3725 mL out. She has been able to be weaned from the nitroglycerin drip. Chest x-ray shows lines and tubes in good position. There does appear to be less edema today. I still believe there is some atelectasis versus infiltrate at the left base. The most recent laboratories shows a white blood cell count of 12.6, hemoglobin 8.5 which is unchanged from yesterday, 83% segmented neutrophils, no bands. Platelet count 248,000. Sodium 132, potassium 3.8, chloride 91, CO2 30, BUN 55, creatinine 1.84, glucose 189, albumin 2.2. Blood gas done this morning on a synchronized intermittent mandatory ventilation (SIMV) of 8, tidal volume 460, PEEP of 8, FiO2 of 45%, pressure support of 12, has a pH of 7.506, PCO2 of 35.9, and pO2 of 86.8, with saturation 96.9%. Sputum culture from yesterday does have many WBCs and many gram-positive cocci in pairs and chains. Through the night, her propofol was attempted to be weaned, but she had significant increase in seizure activity despite increase of other anticonvulsants by neurology. She is back on low-dose propofol, and seizures appear well controlled at the moment. The remainder of her examination shows that her pupils do react. She currently is sedated on propofol. She does not track any movements. There is some movement to noxious stimuli. Trachea is in the midline. Membranes are moist. Chest is fairly clear anteriorly. Expansion is symmetric. Good breath sound intensity. Some fine opening crackles at the base with diminished breath sound intensity at the extreme bases. No rub. Cardiac examination show irregular. Murmur is unchanged. Peripheral pulses are diminished but palpable. Diffuse edema is unchanged. Abdomen does show positive bowel sounds. Mildly distended. No convincing organomegaly or masses. Extremities show no signs of clubbing. Neurologically, as outlined above. The most pressing problems requiring my immediate presence at the bedside: 1. Respiratory alkalosis. 2. Respiratory failure, still requiring mechanical ventilatory support. 3. Seizures secondary to acute neurologic event. 4. Multiple cerebrovascular accidents (CVAs) secondary to cardiopulmonary arrest. 5. Atherosclerotic cerebrovascular disease. At this point, we will continue propofol for now. We will continue to attempt sedation vacations daily, although her continued difficulties with seizures remain problematic. Given the appearance of her sputum, we will be giving empiric antimicrobials. Quinolones in order that she allergic to PENICILLINS. We will monitor her creatinine, as it is mildly elevated today compared to yesterday and dose adjust that as needed, but she will get a full dose today. She is tolerating tube feeds at goal. Hopefully, now that she has been weaned from nitroglycerin, we will be able to achieve a net negative for her. Blood pressure has been much easier to control the last 24-48 hours. I greatly appreciate the help of the consultants involved. At this point, she remains quite critically ill. The prognosis regarding her neurologic status still remains in question, and certainly her continued seizures significantly affect that. At this point, we will continue her current level of care. Ulcer and deep venous thrombosis (DVT) prophylaxis are in place. No further weaning from the ventilator is able due to her mental status. If we make no significant progress in the next several days, we will need to consider tracheostomy. I left the bedside at 0849 hours. 34 minutes of critical care time was delivered at the bedside, not including procedures.
[2016-07-22] MEDS: metOLazone 2.5 MG TAB PO SCH (11:07)
[2016-07-22] MEDS: PHENYTOIN 100 MG/2 ML VIAL (J1165) IV SCH (12:09)
--- NOTE | 2016-07-22 14:07 | IPN ---
DATE OF SERVICE: 07/22/2016 Vianney Cabrera was seen earlier today, she is laying supine in bed, intubated and sedated. Yesterday, we managed to control her input and input by reducing some of the fluid intake and increasing her diuretic. She is also being monitored by neurology, her anticonvulsant medications are being readjusted because she was having more seizure activity after attempting to taper off the propofol. Her blood pressure continues to be stable even off the nitroglycerin drip. Her last vital signs today revealed a blood pressure of 130/60 with a pulse of 86, respirations 28 and her maximum temperature is 99.8 degrees Fahrenheit with an oxygen saturation that varied between 88 up to 93 on an FiO2 of 0.35. For 07/21/2016 she has an intake of 4009.0 mL and an output of 3725 mL for a positive fluid balance of 284 mL. Examination of the head atraumatic. Neck is supple, no jugular venous distention (JVD). Lungs revealed bilateral rhonchi, but no wheezing. Abdomen is soft. Extremities revealed trace lower leg and ankle edema. Neurological examination was not done. LABORATORIES: CBC done today, 07/22/2016, revealed a WBC of 12.6, hemoglobin of 8.5, hematocrit 26.2 and platelets 248,000. BMP revealed a sodium of 132, potassium 3.8, chloride 91, CO2 30, BUN 55, creatinine 1.84, GFR 28.7 with a fasting glucose of 189, and a calcium of 6.9. Liver enzymes revealed a total bilirubin of 0.5, AST 54, ALT 46, alkaline phosphatase 94, total protein 5.2 and albumin 2.2. Status post respiratory failure and cardiac arrest in this 71-year-old woman with history of coronary artery disease (CAD), hypertension, hyperlipidemia, cerebrovascular accident (CVA), peripheral artery disease involving her carotid arteries, multiple CVAs, chronic left bundle branch block and chronic kidney disease. Echocardiogram this hospitalization revealed a normal global left ventricular systolic function. Her serum Troponin was nondiagnostic. She has put out a lot of urine after increasing her furosemide and started on Zaroxolyn. She has developed some deterioration in her kidney function and she will be monitored. Will repeat her BMP sometime later today then further recommendation will be given. Her blood pressure seems to be under control even after stopping the IV nitroglycerin. Her overall conditions are being managed by the intensivists and neurologist. RADHA
[2016-07-22] MEDS: ACETAMINOPHEN 325 MG/10.15 ML UDC NG PRN ×2 (15:40→20:53)
[2016-07-22 18:24] LABS: CALCIUM LEVEL 7.1 MG/DL (8.8-10.2); CREATININE FOR GFR 2.14 MG/DL (0.55-1.02); GLOMERULAR FILTRATION RATE 24.1 (>39); POTASSIUM SERUM 3.6 MEQ/L (3.5-5.1)
[2016-07-23] VITALS (25 sets, daily range): BP systolic 58–173; BP diastolic 21–71
[2016-07-23] MEDS: FUROSEMIDE 100 MG/10 ML VIAL (J1940) IV SCH (00:07)
[2016-07-23] MEDS: PHENYTOIN 100 MG/2 ML VIAL (J1165) IV SCH ×3 (00:08→23:49)
[2016-07-23] MEDS: HumaLOG INSULIN (NovoLOG) PER UNIT SC SCH ×5 (00:08→23:51)
[2016-07-23] MEDS ORDERED: amLODIPine 5 MG TAB PO ONE ×2 (00:15→22:00)
[2016-07-23] MEDS: ACETAMINOPHEN 325 MG/10.15 ML UDC NG PRN ×6 (01:44→23:49)
[2016-07-23] MEDS: hydrALAZINE INJ 20 MG/ML VIAL IV SCH ×6 (02:57→23:50)
[2016-07-23] MEDS: MIDAZOLAM INJ 2 MG/2 ML VIAL (J2250) IV PRN (04:43)
[2016-07-23] MEDS: SODIUM CHLORIDE 0.9% INJ 10 ML SYR IV SCH ×3 (05:14→22:12)
[2016-07-23] MEDS: PROPOFOL 1,000 MG in APPROPRIATE DILUENT 1 EA IV SCH ×2 (05:14→16:36)
[2016-07-23 05:34] LABS: BASO # 0.1 K/mm3 (0.0-0.2); BASO % 0.8 % (0.0-1.0); EOS % 0.2 % (0.0-3.0); LARGE UNSTAINED CELL # 0.2 K/mm3 (0.0-0.4); LARGE UNSTAINED CELL % 1.4 % (0.0-4.0); LYMPH # 0.5 K/mm3 (1.5-4.5); LYMPH % 3.4 % (24.0-44.0); MEAN CORPUSCULAR HEMOGLOBIN 27.2 pg (27.0-33.0); MEAN CORPUSCULAR HGB CONC 32.3 g/dl (32.0-36.5); MEAN CORPUSCULAR VOLUME 84.3 fl (80.0-96.0); MONO % 7.1 % (0.0-5.0); NEUTROPHILS # 12.4 K/mm3 (1.8-7.7); NEUTROPHILS % 87.1 % (36.0-66.0); PLATELET COUNT, AUTOMATED 323 k/mm3 (150-450); RED CELL DISTRIBUTION WIDTH 15.8 % (11.5-14.5); WHITE BLOOD COUNT 14.2 K/mm3 (4.0-10.0)
[2016-07-23 05:51] LABS: ALBUMIN 2.3 GM/DL (3.2-5.2); ALBUMIN/GLOBULIN RATIO 0.66 (1.00-1.93); BILIRUBIN,TOTAL 0.6 MG/DL (0.2-1.0); CALCIUM LEVEL 7.2 MG/DL (8.8-10.2); CREATININE FOR GFR 1.99 MG/DL (0.55-1.02); GLOMERULAR FILTRATION RATE 26.2 (>39); PHOSPHORUS LEVEL 6.2 MG/DL (2.5-4.9); POTASSIUM SERUM 3.6 MEQ/L (3.5-5.1); TOTAL PROTEIN 5.8 GM/DL (6.4-8.2)
[2016-07-23 06:40] LABS: ABG BASE EXCESS 4.4 (-2.0-2.0); ABG HCO3 27.4 MEQ/L (22.0-26.0); ABG PARTIAL PRESSURE CO2 34.7 mmHg (35.0-45.0); ABG PARTIAL PRESSURE O2 102.2 mmHg (75.0-100.0); ABG STANDARD HCO3 28.4 MEQ/L (22.0-26.0); ABG TOTAL CO2 28.4 MEQ/L (23.0-31.0); ABG pH (ARTERIAL) 7.515 UNITS (7.350-7.450)
[2016-07-23] MEDS: ALBUTEROL SULFATE 2.5 MG/0.5 ML INH NEB SOLN NEB SCH ×4 (07:31→19:15)
--- NOTE | 2016-07-23 08:09 | REP ---
Clinical: Endotracheal tube placement. Comparison: 07/22/2016. Findings: The endotracheal tube is approximately 2.7 cm from the blayne. Nasogastric tube courses below left hemidiaphragm. Right subclavian catheter with tip in the SVC. Mediastinum and cardiac silhouette are within normal limits and stable. Medial right basilar and left lower lobe/retrocardiac consolidations are again appreciated and may be slightly improved when compared to prior examination. Small layering left effusion suggested which may also be decreased when compared to prior examination. No pneumothorax. Skeletal structures stable. Impression: Continued bibasilar infiltrates and small left pleural effusion which appears slightly improved compared to prior. Signed by Jone Jordan MD 07/23/2016 08:01 A
[2016-07-23] MEDS: HEPARIN SOD (PORCINE) 5000 UNITS/ML VIAL SQ SCH ×2 (08:49→20:30)
[2016-07-23] MEDS: CHLORHEXIDINE GLUCONATE 0.12 % 15ML UDC (PERIDEX ORAL RINSE) MT SCH ×2 (08:51→20:30)
[2016-07-23] MEDS: PANTOPRAZOLE 40MG INJ (PROTONIX) (C9113) IV SCH (08:51)
[2016-07-23] MEDS: levETIRAcetam INJection 1,500 MG in D5W 100 ML IV SCH ×2 (08:54→20:30)
[2016-07-23] MEDS: LevoFLOXacin IV 500 MG in APPROPRIATE DILUENT 1 EA IV SCH (08:55)
[2016-07-23] MEDS: NYSTATIN 100,000 UNITS/GM TOPICAL PWD 15 GM TOP SCH ×2 (08:55→20:31)
[2016-07-23] MEDS: LACOSAMIDE 10MG/ML 20ML VIAL (VIMPAT) (C9254) IV SCH ×2 (08:55→20:30)
[2016-07-23] MEDS: CARVedilol 12.5 MG TAB PO SCH ×2 (08:56→20:30)
[2016-07-23] MEDS ORDERED: BISACODYL 10 MG SUPP PR PRN (09:30)
--- NOTE | 2016-07-23 09:45 | RO ---
DATE OF PROCEDURE: 07/23/2016 PREPROCEDURE DIAGNOSIS: Need for vascular access and antibiotics. POSTPROCEDURE DIAGNOSIS: Need for vascular access and antibiotics. PROCEDURE: Insertion of left subclavian central line. SURGEON: Dr. Delmar Berger LINOLEUM INSTALLER: ANESTHESIA: ESTIMATED BLOOD LOSS: PROCEDURE: The patient was totally sedated and could not give consent. Patient's left infraclavicular fossa was prepped and draped in the usual sterile fashion. The infraclavicular fossa was infiltrated with 1% Xylocaine and the vein was found on the first pass. Wire was placed without difficulty and with production of PVCs. Tract was dilated and triple lumen catheter was placed by Seldinger technique. Ports were aspirated and flushed without difficulty and the line was sutured to the chest wall with two #3-0 silk sutures. Patient tolerated the procedure well and chest x-ray is pending. [facility]
--- NOTE | 2016-07-23 10:15 | CCN ---
DATE: 07/23/2016 START TIME: 0900 hours STOP TIME: 0934 hours I again attended Vianney Cabrera here in the intensive care unit (ICU). She remains intubated, sedated, mechanically ventilated. We have been able to wean her Propofol. She is on increased doses of anticonvulsants through neurology and no further seizures have been noted thus far. Maximum temperature (t-max) overnight 103.6, currently 101.8. Blood pressure 110 to 153 systolic, heart rate generally in the 80s, respiratory rate generally in the 20s. She clearly does over breathe the ventilator. Input and output through midnight last night 3070 mL in with 3785 mL out. Since midnight, 550 mL in with 1095 mL out. Most recent blood gas shows pH 7.515, PCO2 34.7, PAO2 of 102.2, saturation 98% on an SIMV of 8, tidal volume 460, PEEP of 8, pressure support of 12, FiO2 at 30%. Sodium 130, potassium 3.6, chloride 88, CO2 of 30, BUN 76, creatinine 1.99, mildly down from yesterday. AST 71, ALT 59, alkaline phosphatase mildly elevated at 124, CK 517. White blood cell count 14.2, hemoglobin 9.6, platelet count 323,000, 87% segmented neutrophils, no bands. Chest x-ray is reviewed, and I do believe there is some improvement at the extreme left base today, as I do believe I can see her diaphragm. PHYSICAL EXAMINATION: She does spontaneously open her eyes, but I do not believe this is to command. She does grimace to noxious stimuli. Pupils do briskly react. Trachea is in the midline. No obvious jugular venous distention (JVD). CHEST: Fairly clear anteriorly. There are some fine crackles early in the inspiratory phase at the bases dependently. CARDIAC EXAM: Generally regular. Peripheral pulses palpable. Her diffuse edema is unchanged. ABDOMEN: Minimally distended. There are active bowel sounds. No organomegaly or masses. EXTREMITIES: Show no cyanosis or clubbing. NEUROLOGIC: As outlined above. Most pressing problems requiring my presence at the bedside are: 1. Fever. 2. Respiratory failure. 3. Respiratory alkalosis. 4. Encephalopathy secondary to cardiopulmonary arrest. 5. Several small CVA's by CT and MRI. 6. Seizure secondary to the above. 7. Atherosclerotic cerebrovascular disease. At this point, we will continue her current antimicrobials. Her sputum from 2 days ago had some gram positive cocci, one from yesterday is fairly benign in appearance, but we await the final culture and sensitivities. I do believe the left base has a little bit more radiolucency today. Her secretions have been minimal. Due to her fever, we will change her central line. Her A line site looks good. Urine culture pending. She will remain on Levaquin as outlined above. I greatly appreciate neurology and cardiology's help. At this point, off the propofol because she has had no further seizures and hopefully this can continue as we will better be able to assess her true neurologic status. She is tolerating tube feeds. We will add low dose cathartics. I spoke at length with neurology yesterday, who was going to be in contact with her niece. In the next several days, we will need to make a decision regarding whether or not to proceed with tracheostomy. If her fever persists and there are any changes in her transaminases, as well as her alkaline phosphatase, we may need to consider right upper quadrant ultrasound. Overall, she remains critically ill. I left the bedside at 0934 hours. 34 minutes of critical care time was delivered at the bedside, not including procedures.
--- NOTE | 2016-07-23 10:18 | REP ---
Clinical: Status post line placement. Comparison: 07/23/2016 at 07:32 a.m. Findings: Endotracheal tube in satisfactory position approximately 2.8 cm above the blayne. Nasogastric tube courses below left hemidiaphragm. Left subclavian catheter with tip in the right atrium. Medial right basilar and moderate left lower lobe/retrocardiac consolidations are again appreciated and unchanged. Layering left effusion cannot be excluded as well. The cardiac silhouette is within normal limits for portable technique. There is no evidence for pneumothorax. Skeletal structures demonstrate age-related changes. Impression: 1. Lines and tubes in satisfactory position. 2. Continued bilateral lower lobe infiltrates (left greater than right). 3. No pneumothorax. Signed by Jone Jordan MD 07/23/2016 10:10 A
[2016-07-23] MEDS: LORazepam 2 MG/ML VIAL (J2060) IV PRN (18:17)
[2016-07-24] VITALS (23 sets, daily range): BP systolic 86–177; BP diastolic 45–71
[2016-07-24] MEDS: PROPOFOL 1,000 MG in APPROPRIATE DILUENT 1 EA IV SCH (02:36)
[2016-07-24] MEDS: hydrALAZINE INJ 20 MG/ML VIAL IV SCH ×6 (03:58→23:29)
[2016-07-24] MEDS: ACETAMINOPHEN 325 MG/10.15 ML UDC NG PRN ×3 (05:07→18:24)
[2016-07-24] MEDS: LORazepam 2 MG/ML VIAL (J2060) IV PRN ×2 (05:16→16:58)
[2016-07-24 06:04] LABS: ABG BASE EXCESS 4.4 (-2.0-2.0); ABG HCO3 28.1 MEQ/L (22.0-26.0); ABG PARTIAL PRESSURE CO2 38.4 mmHg (35.0-45.0); ABG PARTIAL PRESSURE O2 87.5 mmHg (75.0-100.0); ABG STANDARD HCO3 28.4 MEQ/L (22.0-26.0); ABG TOTAL CO2 29.3 MEQ/L (23.0-31.0); ABG pH (ARTERIAL) 7.482 UNITS (7.350-7.450)
[2016-07-24 06:13] LABS: BASO % 0.2 % (0.0-1.0); EOS % 0.2 % (0.0-3.0); LARGE UNSTAINED CELL # 0.1 K/mm3 (0.0-0.4); LARGE UNSTAINED CELL % 1.2 % (0.0-4.0); LYMPH # 0.4 K/mm3 (1.5-4.5); LYMPH % 3.3 % (24.0-44.0); MEAN CORPUSCULAR HEMOGLOBIN 27.1 pg (27.0-33.0); MEAN CORPUSCULAR HGB CONC 31.8 g/dl (32.0-36.5); MEAN CORPUSCULAR VOLUME 85.3 fl (80.0-96.0); MONO # 0.6 K/mm3 (0.0-0.8); MONO % 6.4 % (0.0-5.0); NEUTROPHILS # 8.8 K/mm3 (1.8-7.7); NEUTROPHILS % 88.6 % (36.0-66.0); PLATELET COUNT, AUTOMATED 328 k/mm3 (150-450); RED CELL DISTRIBUTION WIDTH 15.9 % (11.5-14.5)
[2016-07-24] MEDS: SODIUM CHLORIDE 0.9% INJ 10 ML SYR IV SCH ×3 (06:17→21:12)
[2016-07-24] MEDS: HumaLOG INSULIN (NovoLOG) PER UNIT SC SCH ×4 (06:17→23:29)
[2016-07-24 06:36] LABS: ALBUMIN 2.1 GM/DL (3.2-5.2); ALBUMIN/GLOBULIN RATIO 0.66 (1.00-1.93); BILIRUBIN,TOTAL 0.4 MG/DL (0.2-1.0); CALCIUM LEVEL 7.4 MG/DL (8.8-10.2); CREATININE FOR GFR 1.78 MG/DL (0.55-1.02); GLOMERULAR FILTRATION RATE 29.8 (>39); POTASSIUM SERUM 3.8 MEQ/L (3.5-5.1); TOTAL PROTEIN 5.3 GM/DL (6.4-8.2)
[2016-07-24 06:50] LABS: PHOSPHORUS LEVEL 4.5 MG/DL (2.5-4.9)
--- NOTE | 2016-07-24 06:56 | IPN ---
DATE: 07/24/2016 SUBJECTIVE: Mrs. Cabrera' condition over the weekend did not improve any. She has several new issues. First of all, she started having seizures and neurology was involved, and she is now on Depakote and Vimpat. Secondarily, she started having fevers, and the central line was changed from right subclavian to left subclavian. She is now on antibiotic coverage. There is no obvious neurologic improvement, even without sedation. OBJECTIVE: On my evaluation this morning, the patient would not respond to verbal stimuli. There is somewhat purposeful movement of extremities to pain, but I do not appreciate any purposeful responses. She does not open her eyes to painful stimulation. VITAL SIGNS: Blood pressure 134/63. Overnight was somewhat low. Heart rate is in 80s to 90s. Temperature this morning is 101.5. Saturation 97% on 40% FiO2. Fluid balance yesterday was approximately equal. Documented weight is 79.1 kg. LUNGS: Are relatively to clear to auscultation with good air movement. CARDIAC: Heart exam reveals regular rhythm. I do not appreciate any gallop or rub. ABDOMEN: Distended but soft. Bowel sounds are present. EXTREMITIES: Peripheral pulses are palpable. All four extremities have small amount of edema. NEUROLOGIC: As above. LABORATORY DATA: CBC this morning reveals hemoglobin 8.7, hematocrit 27, platelet count 328,000, and WBC count 10,000. Basic metabolic panel is still pending. IMAGING: There was no chest x-ray performed this morning. The film from yesterday reveals removal of right subclavian and introduction of left subclavian central line. There is marked improvement of pulmonary infiltrate compared to last week. ASSESSMENT AND PLAN: Mrs. Cabrera is a rather unfortunate 71-year-old female who presented to emergency room by ambulance from our office where she came with complaints of shortness of breath. Shortly after presentation to emergency room, she arrested. In my opinion it was principally a respiratory event leading to bradycardia. After approximately 30 minutes of cardiopulmonary resuscitation (CPR), there was return of spontaneous circulation, and she has been in intensive care since. From cardiac perspective, her blood pressure seems to be reasonably well controlled on current regimen of hydralazine and Coreg, and she was also started on amlodipine yesterday. I am not going to make any changes, even though I would like to transfer to medication administered through the nasogastric (NG) tube, but I am not convinced about the reliability of absorption. As far as the volume status is concerned, I think that she is volume overloaded, but there is probably a component of sepsis due to her fevers. I will await the result of the blood work before making any decision in this regard. Management of respiratory component, IV, and seizures as per neurology and critical care teams. It becomes obvious that patient's prognosis is principally dependent on her neurologic status. So far it does not look encouraging.
[2016-07-24] MEDS: ALBUTEROL SULFATE 2.5 MG/0.5 ML INH NEB SOLN NEB SCH ×4 (07:27→19:33)
--- NOTE | 2016-07-24 07:29 | REP ---
Clinical: Endotracheal tube placement. Comparison: 07/23/2016. Findings: Evaluation is limited by underpenetration. The endotracheal tube is approximately 2.8 cm above the blayne. Nasogastric tube courses below left hemidiaphragm. Right subclavian catheter with tip in the SVC/right atrium. Stable cardiomegaly. Bilateral lower lobe opacities (left greater than right) and suspected layering left effusion essentially unchanged. Impression: 1. Lines and tubes in satisfactory position. 2. No significant change in pleuroparenchymal findings. Signed by Jone Jordan MD 07/24/2016 07:21 A
[2016-07-24] MEDS: PANTOPRAZOLE 40MG INJ (PROTONIX) (C9113) IV SCH (09:13)
[2016-07-24] MEDS: CHLORHEXIDINE GLUCONATE 0.12 % 15ML UDC (PERIDEX ORAL RINSE) MT SCH ×2 (09:14→21:11)
[2016-07-24] MEDS: HEPARIN SOD (PORCINE) 5000 UNITS/ML VIAL SQ SCH ×2 (09:14→21:11)
[2016-07-24] MEDS: levETIRAcetam INJection 1,500 MG in D5W 100 ML IV SCH ×2 (09:14→21:12)
[2016-07-24] MEDS: LACOSAMIDE 10MG/ML 20ML VIAL (VIMPAT) (C9254) IV SCH ×2 (09:14→21:12)
[2016-07-24] MEDS: LevoFLOXacin IV 500 MG in APPROPRIATE DILUENT 1 EA IV SCH (09:14)
[2016-07-24] MEDS: CARVedilol 12.5 MG TAB PO SCH ×2 (09:15→21:11)
[2016-07-24] MEDS: NYSTATIN 100,000 UNITS/GM TOPICAL PWD 15 GM TOP SCH ×2 (09:16→21:12)
--- NOTE | 2016-07-24 10:30 | CCN ---
DATE OF VISIT: 07/24/2016 START TIME: 918 hours STOP TIME: 956 hours I again attended Vianney Cabrera here in the intensive care unit. She remains intubated and mechanically ventilated. Propofol has been off. No significant seizure activity as prior with her current anticonvulsant regimen, although there are intermittent short-lived tremors of the right upper extremity. She remains essentially minimally responsive. She does grimace somewhat to noxious stimuli. She will occasionally spontaneously open her eyes but does not follow commands. No interaction. Maximum temperature (Tmax) the last 24 hours 101.5, heart rate generally 80s-90s with a sinus mechanism, blood pressure generally in the 170s, brief minimum in the 80s yesterday, respiratory rate 20s-low 30s. Intake and output (I and O) the last 24 hours: 2715 mL in with 2665 mL out from midnight to midnight. The most recent laboratories show a sodium of 132, a potassium of 3.8, chloride 92, CO2 31, BUN 80, creatinine 1.78 mildly down from yesterday, glucose 243, calcium 7.4, albumin 2.1. The most recent arterial blood gas done on a synchronized intermittent mandatory ventilation (SIMV) of 8, tidal volume 460, PEEP of 8, pressure support of 12, FiO2 of 40%, has a pH of 7.482, PCO2 of 38.4, pO2 of 87.5, saturation 96.8%. Sputum culture has grown Enterobacter cloacae, sensitive to the Levaquin which she is on. Urine culture grew Enterococcus faecalis, again also sensitive to the Levaquin which she is on. Chest x-ray shows lines and tubes in good position. Essentially, an expiratory film. On examination, neurologic status as outlined above. Pupils are brisk and do react. Membranes are moist. Trachea is in the midline. CHEST: Is clear anteriorly. There are the rarest of rhonchi. There are some dependent basilar crackles. A little bit more diminished breath sound intensity at the extreme left base but no convincing egophony. No rubs. CARDIAC EXAMINATION: Generally regular. No gallop. Peripheral pulses palpable. Edema is unchanged. ABDOMEN: Soft with active bowel sounds. No convincing organomegaly or masses. EXTREMITIES: Show no cyanosis or clubbing. NEUROLOGIC: As outlined above. The most pressing problems requiring my presence at the bedside are: 1. Respiratory alkalosis. 2. Respiratory failure requiring mechanical ventilation. 3. Urinary tract infection with Enterococcus faecalis. 4. Sputum positive for Enterobacter cloacae. 5. Encephalopathy, multifactorial. 6. Cerebrovascular accidents (CVAs). 7. Renal failure, improving. 8. Seizures. 9. Status post cardiopulmonary arrest. At this point, I greatly appreciate the input of the consultants involved, both cardiology and neurology. I await further neurology evaluation today, as we have reached a point where we need to make decisions regarding further aggressive steps in her care, namely tracheostomy. She clearly overbreathes the ventilator, and my suspicion is with tracheostomy, we would be able most likely to wean her completely from ventilatory support. I will speaking with her niece in the next 24-48 hours in that regard. In the interim, she is tolerating tube feeds. We will continue her current antimicrobials. Ulcer and deep venous thrombosis (DVT) prophylaxis are in place. Overall, her prognosis regarding neurologic recovery remains guarded at best. We will proceed as outlined above. I left the bedside at 0957 hours. 38 minutes of critical care time was delivered at the bedside, not including procedures.
[2016-07-24] MEDS: PHENYTOIN 100 MG/2 ML VIAL (J1165) IV SCH ×2 (12:05→23:28)
--- NOTE | 2016-07-24 20:41 | EEG ---
DATE OF PROCEDURE: 07/24/2016 REFERRING PHYSICIAN: Dr. Kris Márquez DIAGNOSIS: Seizure activity. EEG NUMBER: [id number] HISTORY: The patient is a 71-year-old woman with a history of hypoxic ischemic brain injury, status post cardiac arrest and has frequent focal motor seizures. This EEG was done to rule out epileptic potential and degree of encephalopathy. She is currently on Dilantin, Vimpat, Keppra, etc. She has been off sedation for 2 days and still does not respond. She is intubated and mechanically ventilated. TECHNICAL DESCRIPTION: This digital EEG was recorded by 21 scalp, ear and two EKG electrodes and was reviewed in bipolar and referential montages following reformatting in 10-20 international electrode placement system. INTERPRETATION: The patient was noted to be in mostly drowsy state during this EEG. She is intubated and mechanically ventilated without sedation. She does not respond to painful or verbal stimuli. Background rhythm consisted of 5-15 microvolts low amplitude delta activity throughout this EEG. No clear sleep stages were identified. Hyperventilation could not be performed. Photic stimulation remained unremarkable. EKG revealed wide complex QRS complexes were noted due to possible left bundle branch block. CONCLUSION: This EEG in a critically ill patient who is mechanically ventilated and intubated is abnormal due to presence of low voltage and slowing of background consistent with nonspecific diffuse cerebral dysfunction such as seen in encephalopathy due to multiple potential causes. No epileptiform abnormalities were seen. This EEG does not meet criteria for brain . Clinical correlation is recommended. [facility]
--- NOTE | 2016-07-24 21:49 | IPN ---
DATE: 07/23/2016 Patient was seen earlier today. She was laying supine in bed in no acute distress at rest. She is intubated, sedated, nonresponsive, but pupils are reactive. This morning, she was not having any seizure manifestations. Yesterday, her diuretics were increased, but then she developed deterioration. She developed elevated serum BUN and they were discontinued last evening, including the lisinopril. Today, she is being monitored. Her blood pressure was elevated after starting the nitroglycerin drip and she was started on amlodipine. There was no report of bleeding. She has started having fever. PHYSICAL EXAMINATION: Patient is unresponsive, but in no acute distress. Her vital signs when I saw her earlier today reveal a blood pressure of 139/63 with a pulse of 80, respirations 29 and her maximum temperature was 101.7 degrees Fahrenheit, with an oxygen saturation of 95% on FiO2 of 40. EXAMINATION OF THE HEAD: Atraumatic. NECK: Supple. No jugular venous distention (JVD). LUNGS: Revealed bilateral rhonchi, but no wheezing. HEART: Normal S1, S2. No gallops. The point of maximum impulse (PMI) is not displaced. There was no rub. ABDOMEN: Unremarkable. EXTREMITIES: Reveal trace ankle edema. NEUROLOGICAL: Examination was not done. LABORATORIES: Basic metabolic panel (BMP) done this morning revealed a sodium of 130, potassium 3.6, chloride 88, CO2 30, BUN 76, creatinine 1.99, GFR 26.2, fasting glucose 216 , calcium 7.2. Liver enzymes revealed a total bilirubin of 0.6, AST 71, AST 59, alkaline phosphatase 124, total bilirubin 5.8, albumin 2.3. Complete blood count (CBC) done today revealed a WBC of 14.2, hemoglobin 9.6 hematocrit 29.7 and platelets 323,000. Arterial blood gas (ABG) reveals a pH of 7.51, pCO2 34.7, pO2 102.2, oxygen saturation 98%. Chest x-ray done this morning revealed no cardiomegaly. There is no manifestation of heart failure. There may be infiltrates in both lower lobes. Telemetry revealed normal sinus rhythm. Mrs. Vianney aCbrera' overall condition remains the same. Will continue current cardiac medications and I will monitor her along with you. Tomorrow, she will be seen by Dr. Slezka. He will decide together with you when to restart the diuretics. The etiology of event remains unclear. Please do not hesitate to call if there are any questions. [facility]
[2016-07-25] VITALS (26 sets, daily range): BP systolic 87–155; BP diastolic 48–67
[2016-07-25] MEDS: ACETAMINOPHEN 325 MG/10.15 ML UDC NG PRN (00:16)
[2016-07-25] MEDS: LORazepam 2 MG/ML VIAL (J2060) IV PRN (03:39)
[2016-07-25] MEDS: hydrALAZINE INJ 20 MG/ML VIAL IV SCH ×6 (03:39→23:04)
[2016-07-25 06:27] LABS: BASO % 0.2 % (0.0-1.0); EOS % 0.4 % (0.0-3.0); LARGE UNSTAINED CELL # 0.2 K/mm3 (0.0-0.4); LARGE UNSTAINED CELL % 1.6 % (0.0-4.0); LYMPH # 0.8 K/mm3 (1.5-4.5); LYMPH % 6.7 % (24.0-44.0); MEAN CORPUSCULAR HEMOGLOBIN 27.1 pg (27.0-33.0); MEAN CORPUSCULAR HGB CONC 31.8 g/dl (32.0-36.5); MEAN CORPUSCULAR VOLUME 85.4 fl (80.0-96.0); MONO # 0.6 K/mm3 (0.0-0.8); NEUTROPHILS # 8.6 K/mm3 (1.8-7.7); NEUTROPHILS % 85.1 % (36.0-66.0); PLATELET COUNT, AUTOMATED 350 k/mm3 (150-450); RED CELL DISTRIBUTION WIDTH 15.7 % (11.5-14.5); WHITE BLOOD COUNT 10.1 K/mm3 (4.0-10.0)
[2016-07-25 06:30] LABS: ABG BASE EXCESS 5.3 (-2.0-2.0); ABG HCO3 28.6 MEQ/L (22.0-26.0); ABG PARTIAL PRESSURE CO2 36.8 mmHg (35.0-45.0); ABG STANDARD HCO3 29.2 MEQ/L (22.0-26.0); ABG TOTAL CO2 29.7 MEQ/L (23.0-31.0); ABG pH (ARTERIAL) 7.508 UNITS (7.350-7.450)
[2016-07-25] MEDS: HumaLOG INSULIN (NovoLOG) PER UNIT SC SCH ×4 (06:34→23:56)
[2016-07-25] MEDS: SODIUM CHLORIDE 0.9% INJ 10 ML SYR IV SCH ×3 (06:34→20:55)
[2016-07-25] MEDS ORDERED: LORazepam 2 MG/ML VIAL (J2060) IV STA (06:39)
[2016-07-25 06:52] LABS: ALBUMIN 2.2 GM/DL (3.2-5.2); ALBUMIN/GLOBULIN RATIO 0.71 (1.00-1.93); BILIRUBIN,TOTAL 0.3 MG/DL (0.2-1.0); CALCIUM LEVEL 7.7 MG/DL (8.8-10.2); CREATININE FOR GFR 1.55 MG/DL (0.55-1.02); PHOSPHORUS LEVEL 3.2 MG/DL (2.5-4.9); TOTAL PROTEIN 5.3 GM/DL (6.4-8.2)
--- NOTE | 2016-07-25 07:06 | IPN ---
DATE: 07/25/2016 Mrs. Cabrera unfortunately is not neurologically getting any better as she continued to have focal seizures and her neurologic status does not seem to be improving in any significant way. There is some movement of her extremities and she has some minimal motor movement to painful stimuli and she also opens her eyes at times, but there is no purposeful movement or interaction. From a hemodynamic perspective, she remains about the same with the current antihypertensive medications. Her vitals are reasonably well-controlled. PHYSICAL EXAMINATION: The patient is intubated on a mechanical ventilator. Blood pressure 130/59. Heart rate is from 80s to low 90s, sinus rhythm. Saturation is 95% on 40% FIO2. She continues to be febrile with morning temperature of 101.3, but she was as high as 101.8 last night. There is a left subclavian catheter in place. She has a regular rhythm. I do not appreciate gallop. Lungs are relatively clear with good air movement. Abdomen is distended, but soft. There no obvious guarding of painful stimuli. Bowel sounds are positive. She has trace peripheral edema. Neurologically as above. Laboratory-jefferson, her basic metabolic panel is pending today. Yesterday, potassium of 3.8, BUN 80, creatinine 1.8, for calculated GFR of 30, and glucose 243, which was an improvement compared to the day before. CBC: WBC count 10.1, hemoglobin 8.8, hematocrit 26, and platelet count 350. ASSESSMENT/PLAN: Mrs. Cabrera is a 71-year-old female who presented with bradycardic arrest, likely due to respiratory failure. She had a prolonged cardiopulmonary resuscitation (CPR). Subsequently, had acute renal failure that seems to have been improving. She did not have myocardial infarction. Unfortunately, her prognosis at this point is likely determined principally by the extent of neurologic injury. It does not appear that we are making any progress in this regard. From a cardiac perspective, I will continue current treatment. She is receiving intravenous hydralazine and as it is effective in combination with Coreg I intend to continue the same Within the next few days, the decision will have to be made with her next of kin as to whether to pursue tracheostomy. Eventually, at some point, will have to make a transition from IV to purely NG oral medications. Unfortunately, I do not have much to contribute otherwise. She has been receiving deep vein thrombosis (DVT) prophylaxis and the critical care team and neurology are managing her remaining issues.
--- NOTE | 2016-07-25 08:42 | REP ---
Portable chest, 07/25/2016, 06:57 a.m., single AP view, the patient semi upright: Comparison is 07/24/2016. The endotracheal tube remains in satisfactory location with the tip at the level of the aortic arch. The nasogastric tube is identified. Again identified, however the precise location of the distal tip is obscured in the upper abdomen from under penetration. The left costophrenic angle is effaced, unchanged, suggestive of a left pleural effusion. Interstitial markings are mildly coarsened diffusely bilaterally. There is a left subclavian central venous catheter with the tip in the right atrium in satisfactory location, unchanged. Signed by Raji Lyman MD 07/25/2016 08:34 A
[2016-07-25] MEDS ORDERED: PHENYTOIN INJection 1,000 MG in NS 100 ML IV ONE (09:00)
[2016-07-25] MEDS: ALBUTEROL SULFATE 2.5 MG/0.5 ML INH NEB SOLN NEB SCH ×4 (09:01→19:25)
[2016-07-25] MEDS: HEPARIN SOD (PORCINE) 5000 UNITS/ML VIAL SQ SCH ×2 (09:09→20:53)
[2016-07-25] MEDS: PANTOPRAZOLE 40MG INJ (PROTONIX) (C9113) IV SCH (09:10)
[2016-07-25] MEDS: levETIRAcetam INJection 1,500 MG in D5W 100 ML IV SCH ×2 (09:10→20:54)
[2016-07-25] MEDS: LACOSAMIDE 10MG/ML 20ML VIAL (VIMPAT) (C9254) IV SCH ×2 (09:10→20:54)
[2016-07-25] MEDS: CARVedilol 12.5 MG TAB PO SCH ×2 (09:11→20:52)
[2016-07-25] MEDS: CHLORHEXIDINE GLUCONATE 0.12 % 15ML UDC (PERIDEX ORAL RINSE) MT SCH ×2 (09:11→20:52)
[2016-07-25] MEDS: PHENYTOIN 100 MG/2 ML VIAL (J1165) IV SCH ×3 (09:12→20:53)
[2016-07-25] MEDS: NYSTATIN 100,000 UNITS/GM TOPICAL PWD 15 GM TOP SCH ×2 (09:13→20:54)
[2016-07-25] MEDS: LevoFLOXacin IV 500 MG in APPROPRIATE DILUENT 1 EA IV SCH (09:15)
--- NOTE | 2016-07-25 10:23 | CCN ---
DATE: 07/25/2016 START TIME: 825 STOP TIME: 903 I again attended Vianney Cabrera. She has been examined, records reviewed, and I spoke at length with Dr. Jaquez from neurology this morning regarding her status. She had a repeat EEG yesterday. Maximum temperature (T-max) overnight 101.8, heart rate in the 80s to 90s with a sinus mechanism, blood pressure between 100 and 150 systolic. Intake and output midnight to midnight ending last night: 2645 mL in with 2495 mL out. Most recent laboratories show a white blood cell count of 10.1, hemoglobin 8.8, platelet count 350,000, 85 segmented cells, no bands. Sodium of 132, potassium 4.0, chloride 95, CO2 30, BUN 81, creatinine 1.55 down from yesterday. LDH 496, CK 693. Albumin 2.2. Most recent arterial blood gas done on a synchronized intermittent mandatory ventilation (SIMV) of 8, tidal volume 460, PEEP of 8, FiO2 of 40%, pressure support of 12, pH 7.508, PCO2 36, pO2 of 83, saturation 96.5%. Chest x-ray shows lines and tubes in good position. No new densities or infiltrates. Remainder of examination shows her to have continued intermittent tremulousness versus focal seizure of the right upper extremities. She was just given a load of dilantin by Dr. Jaquez. Pupils do react. She has intermittent roving eye movements. She will occasionally grimace to noxious stimuli but does not follow commands. No significant spontaneous movement of the extremities. She does over-breathe the ventilator. Membranes are moist. Trachea is in the midline. CHEST: Shows good symmetric expansion. Air entry is reasonable, anteriorly freely clear. The rarest of rhonchi clears with suctioning. There are some basilar dependent crackles. CARDIAC EXAMINATION: Distant but regular. Peripheral pulses are palpable. Her diffuse edema is unchanged. ABDOMEN: Mildly distended. Bowel sounds are active. No convincing organomegaly or masses. EXTREMITIES: Show no cyanosis or clubbing. NEUROLOGIC: As outlined above. The most pressing problems requiring my presence at the bedside: 1. Respiratory failure. 2. Respiratory alkolosis. 3. 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 4. Urinary tract infection. 5. Renal insufficiency, improving. 6. Arthrosclerotic cerebral vascular disease. 7. Persistent fevers. At this point, all organisms grown from her urine and her sputum are sensitive to Levaquin. We will continue her current dose as her renal function has improved. She is tolerating tube feeds. She is intermittently stooling and we will increase her cathartics. I had a long discussion with neurology. We are at the point where we need to consider tracheostomy. The feeling at this point is that tracheostomy will most likely result in a very high likelihood of a chronic vegetative state. I have spoken at length with Lluvia Bernal, her niece, who has been the one making decisions for her. She is the daughter of the healthcare proxy. She says she has spoken with the entire family and they are all in agreement that that is not something that the patient would want. She will be coming here to [place] in the next several days. So the feeling amongst the family at this point is if she is not going to progress then they are more comfortable with making her COMFORT MEASURES ONLY. In the interim, after a long discussion, she has requested that a DO NOT RESUSCITATE (DNR) be put in place and that was done. In the interim, we will continue out current level of aggressive support but in the event of an acute change in her status, no additional measures will be added, namely cardiac resuscitation, cardiopulmonary resuscitation (CPR) or the addition of vasopressors. Ulcer and deep venous thrombosis (DVT) prophylaxis are in place. We will continue as outlined above. Overall, prognosis remains extremely guarded at best and the likelihood of meaningful neurologic recovery, at this point, unfortunately seems slim. I left the bedside at 0904 hours. 38 minutes of critical care time was delivered at the bedside, not including procedures.
[2016-07-25] MEDS: MIDAZOLAM INJ 2 MG/2 ML VIAL (J2250) IV PRN (23:56)
[2016-07-26] VITALS (19 sets, daily range): BP systolic 84–153; BP diastolic 42–68; O2SAT 96
[2016-07-26] MEDS: hydrALAZINE INJ 20 MG/ML VIAL IV SCH ×6 (03:00→23:22)
[2016-07-26] MEDS: MIDAZOLAM INJ 2 MG/2 ML VIAL (J2250) IV PRN ×2 (04:36→07:37)
[2016-07-26] MEDS: MORPHINE 2 MG/ML 1ML SYRINGE IV PRN (04:46)
[2016-07-26 05:19] LABS: BASO % 0.2 % (0.0-1.0); EOS % 0.3 % (0.0-3.0); LARGE UNSTAINED CELL # 0.2 K/mm3 (0.0-0.4); LARGE UNSTAINED CELL % 1.9 % (0.0-4.0); LYMPH % 8.7 % (24.0-44.0); MEAN CORPUSCULAR HEMOGLOBIN 26.8 pg (27.0-33.0); MEAN CORPUSCULAR VOLUME 86.3 fl (80.0-96.0); MONO # 0.6 K/mm3 (0.0-0.8); NEUTROPHILS # 9.3 K/mm3 (1.8-7.7); NEUTROPHILS % 83.9 % (36.0-66.0); PLATELET COUNT, AUTOMATED 377 k/mm3 (150-450); RED CELL DISTRIBUTION WIDTH 15.5 % (11.5-14.5)
[2016-07-26 05:38] LABS: ALBUMIN 2.3 GM/DL (3.2-5.2); ALBUMIN/GLOBULIN RATIO 0.7 (1.00-1.93); BILIRUBIN,TOTAL 0.3 MG/DL (0.2-1.0); CALCIUM LEVEL 7.4 MG/DL (8.8-10.2); CREATININE FOR GFR 1.56 MG/DL (0.55-1.02); GLOMERULAR FILTRATION RATE 34.7 (>39); PHOSPHORUS LEVEL 4.3 MG/DL (2.5-4.9); POTASSIUM SERUM 4.7 MEQ/L (3.5-5.1); TOTAL PROTEIN 5.6 GM/DL (6.4-8.2)
[2016-07-26] MEDS: SODIUM CHLORIDE 0.9% INJ 10 ML SYR IV SCH ×3 (06:10→20:51)
[2016-07-26] MEDS: HumaLOG INSULIN (NovoLOG) PER UNIT SC SCH ×3 (06:11→18:36)
[2016-07-26] MEDS ORDERED: FUROSEMIDE 100 MG/10 ML VIAL (J1940) IV ONE (08:00)
[2016-07-26] MEDS: levETIRAcetam INJection 1,500 MG in D5W 100 ML IV SCH ×2 (08:10→20:51)
[2016-07-26] MEDS: LACOSAMIDE 10MG/ML 20ML VIAL (VIMPAT) (C9254) IV SCH ×2 (08:10→20:50)
[2016-07-26] MEDS: PANTOPRAZOLE 40MG INJ (PROTONIX) (C9113) IV SCH (08:10)
[2016-07-26] MEDS: CHLORHEXIDINE GLUCONATE 0.12 % 15ML UDC (PERIDEX ORAL RINSE) MT SCH ×2 (08:10→20:50)
[2016-07-26] MEDS: LevoFLOXacin IV 500 MG in APPROPRIATE DILUENT 1 EA IV SCH (08:11)
[2016-07-26] MEDS: PHENYTOIN 100 MG/2 ML VIAL (J1165) IV SCH ×3 (08:11→20:51)
[2016-07-26] MEDS: HEPARIN SOD (PORCINE) 5000 UNITS/ML VIAL SQ SCH ×2 (08:11→20:49)
[2016-07-26] MEDS: CARVedilol 12.5 MG TAB PO SCH ×2 (08:12→20:50)
[2016-07-26] MEDS: NYSTATIN 100,000 UNITS/GM TOPICAL PWD 15 GM TOP SCH ×2 (08:13→20:52)
[2016-07-26] MEDS: ALBUTEROL SULFATE 2.5 MG/0.5 ML INH NEB SOLN NEB SCH ×4 (08:19→19:21)
--- NOTE | 2016-07-26 08:22 | IPN ---
DATE: 07/26/2016 Unfortunately, Mrs. Cabrera does not seem to be getting any better. She remains intubated. She opens eyes frequently, but there does not seem to be any purposeful activity. She does not follow commands and she does not appropriately respond to painful stimuli. Blood pressure has been reasonably well-controlled, this morning 145/68. Heart rate in 70s and 80s. She is afebrile. Saturation is high 90s on 40% FIO2. Fluid balance yesterday was 1 liter positive. Weight is 81 kg. She is alert, no communication, no responses that would seem appropriate. Lungs are reasonably clear to auscultation bilaterally. I do not appreciate any wheezing, rhonchi or rales. Heart exam regular rhythm. No gallop. Abdomen is soft, nontender. Bowel sounds are positive. There is diffuse edema. LABORATORIES: WBC count 11,000, hemoglobin 8.7, hematocrit 28, platelet count 377,000. Basic metabolic panel: potassium 4.7, BUN 88, creatinine 1.6 and glucose 208. Albumin is 2.3 ASSESSMENT/PLAN: Mrs. Cabrera is a 71-year-old female who presented with the shortness of breath and developed bradycardic arrest. After approximately 30 minutes of cardiopulmonary resuscitation (CPR), there was return of spontaneous circulation. Unfortunately, it appears that her neurologic injury is substantial and her mental status is not improving. She continues to have seizures even though they are not as obvious now when she is on antiepileptic medications. Hemodynamically, she has been reasonably well-controlled. I am going to give her a dose of diuretic today in an attempt to prevent grossly positive volume balance brought on by administration of TPN and numerous medications. Unfortunately, her prognosis is poor and it is my in the standing that her niece who is her nearest relative will probably decide to proceed with comfort measures only.
--- NOTE | 2016-07-26 09:15 | REP ---
Portable chest, 06:55 a.m., 07/26/2016, single AP view, the patient semi upright: Comparison is 07/25/2016. Interstitial coarsening is again noted diffusely, unchanged. The left costophrenic angle is effaced suggestive of a left pleural effusion, unchanged. Cardiac size appears enlarged although there is magnification from portable positioning, unchanged. The endotracheal tube, nasogastric tube and left subclavian central venous catheter remain in satisfactory locations, unchanged. Signed by Raji Lyman MD 07/26/2016 09:08 A
--- NOTE | 2016-07-26 10:12 | RO ---
DATE OF PROCEDURE: 07/26/2016 PREPROCEDURE DIAGNOSIS: Mucus plugging. POSTPROCEDURE DIAGNOSIS: Mucus plugging. PROCEDURE: Therapeutic bronchoscopy with aspiration of secretions. SURGEON: Dr. Star Mullins FURNACE ATTENDANT: ANESTHESIA: Local anesthesia 1% Xylocaine via the bronchoscope. The procedure was performed emergently. The patient was ventilated with an Ambu bag valve device throughout the procedure. DESCRIPTION OF PROCEDURE: After the above was given, the scope was lubricated with cetacaine spray. Thick bloody secretions were encountered in the endotracheal tube and were able to be completely suctioned clear. The tube is approximately3 cm above the blayne, but the trachea itself is somewhat tortuous. There is a small area of granulation and mucosal irritation at the end of the tube, most consistent with the suction catheter. The blayne does move. Both mainstem bronchi widely patent, but diffuse airway edema is noted. Mucosa is mildly friable throughout. The left lung was entered first. Some retained secretions were encountered in the left upper lobe but were nonobstructing. Again, the airways were diffusely edematous. In the basilar segments of the left lower lobe, some thicker secretions were encountered, and these were suction lavaged clear. No significant bleeding was encountered, but airways were edematous. Attention was then turned to the right. Upper, middle, and lower lobes easily identified. Generally, widely patent with only some mild basilar retained secretions, but again diffuse airway edema is noted. The scope was then withdrawn and the procedure terminated. The patient tolerated the procedure well. No complications noted. Oxygen saturation remained 98% throughout the examination.
[2016-07-26 10:28] LABS: ABG BASE EXCESS 4.5 (-2.0-2.0); ABG HCO3 29.3 MEQ/L (22.0-26.0); ABG PARTIAL PRESSURE CO2 44.5 mmHg (35.0-45.0); ABG STANDARD HCO3 28.5 MEQ/L (22.0-26.0); ABG TOTAL CO2 30.6 MEQ/L (23.0-31.0); ABG pH (ARTERIAL) 7.436 UNITS (7.350-7.450)
[2016-07-27] VITALS (24 sets, daily range): BP systolic 88–159; BP diastolic 42–103; O2SAT 94
[2016-07-27] MEDS: HumaLOG INSULIN (NovoLOG) PER UNIT SC SCH ×5 (00:51→23:29)
[2016-07-27] MEDS: hydrALAZINE INJ 20 MG/ML VIAL IV SCH ×6 (03:35→23:28)
[2016-07-27] MEDS: MORPHINE 2 MG/ML 1ML SYRINGE IV PRN (03:38)
[2016-07-27 05:24] LABS: BASO % 0.2 % (0.0-1.0); EOS % 0.3 % (0.0-3.0); LARGE UNSTAINED CELL # 0.2 K/mm3 (0.0-0.4); LARGE UNSTAINED CELL % 1.2 % (0.0-4.0); LYMPH # 1.1 K/mm3 (1.5-4.5); MEAN CORPUSCULAR HEMOGLOBIN 27.7 pg (27.0-33.0); MEAN CORPUSCULAR HGB CONC 31.8 g/dl (32.0-36.5); MEAN CORPUSCULAR VOLUME 86.9 fl (80.0-96.0); MONO # 0.5 K/mm3 (0.0-0.8); MONO % 3.9 % (0.0-5.0); NEUTROPHILS % 86.4 % (36.0-66.0); PLATELET COUNT, AUTOMATED 452 k/mm3 (150-450); RED CELL DISTRIBUTION WIDTH 15.6 % (11.5-14.5); WHITE BLOOD COUNT 13.9 K/mm3 (4.0-10.0)
[2016-07-27 05:59] LABS: ALBUMIN 2.3 GM/DL (3.2-5.2); ALBUMIN/GLOBULIN RATIO 0.7 (1.00-1.93); BILIRUBIN,TOTAL 0.3 MG/DL (0.2-1.0); CALCIUM LEVEL 7.8 MG/DL (8.8-10.2); CREATININE FOR GFR 1.33 MG/DL (0.55-1.02); GLOMERULAR FILTRATION RATE 41.7 (>39); PHOSPHORUS LEVEL 4.2 MG/DL (2.5-4.9); POTASSIUM SERUM 4.9 MEQ/L (3.5-5.1); TOTAL PROTEIN 5.6 GM/DL (6.4-8.2)
[2016-07-27 06:33] LABS: ABG HCO3 28.2 MEQ/L (22.0-26.0); ABG PARTIAL PRESSURE CO2 40.9 mmHg (35.0-45.0); ABG PARTIAL PRESSURE O2 76.1 mmHg (75.0-100.0); ABG STANDARD HCO3 28.1 MEQ/L (22.0-26.0); ABG TOTAL CO2 29.5 MEQ/L (23.0-31.0); ABG pH (ARTERIAL) 7.457 UNITS (7.350-7.450)
[2016-07-27] MEDS: SODIUM CHLORIDE 0.9% INJ 10 ML SYR IV SCH ×3 (06:34→20:10)
--- NOTE | 2016-07-27 07:23 | CCN ---
DATE: 07/26/2016 START TIME: 08 STOP TIME: 0900 I again attended Vianney Cabrera. She remains intubated mechanically ventilated. She has not required any sedation. No obvious further seizure activity on her current anticonvulsive regimen. T-max overnight 99.5. Last fever over 101 was yesterday morning at 0800. Blood pressure 80s to the 150s on no vasopressors. Heart rate 60s to 90s with a sinus mechanism. Respiratory varies from 18 to the low 30s. Input and output over the last 24 hours from midnight to midnight ending last night: 2795 in with 1765 mL out. Most recent laboratories show a white blood cell count 11.0, hemoglobin 8.7, platelet count 377,000, 83.9% segmented neutrophils, no bands. Sodium 136, potassium 4.7, chloride 97, CO2 31, BUN 88, creatinine 1.56. Blood gas this morning is pending. Chest x-ray shows lines and tubes in good position. Mild improved aeration of the left base. Respiratory reports over the last hour intermittent increase in peak airway pressures. They seem to be variable. She has had a little bit more trouble with secretions this morning. On exam, she does spontaneously open her eyes, but does not interact. She does have positive corneas. She does not tract in the room. No spontaneous movement of the extremities. Only intermittent grimacing to noxious stimuli. Pupils do react. Trachea is midline. Chest shows mildly diminished breath sounds tendency at the bases. There are some scattered rhonchi. Some fine opening crackles. No egophony or rubs. Expansion is symmetric. Cardiac exam is regular with no gallop. Peripheral pulses are palpable. Edema is unchanged. Abdomen is mildly distended. There are active bowel sounds. No convincing organomegaly or masses. Extremities without cyanosis or clubbing. Neurologically as outlined above. She remains on Levaquin based on culture and sensitivity of her urine and sputum. Ulcer and deep venous thrombosis (DVT) prophylaxis are in place. Most pressing problems requiring my presence at the bedside: 1. Respiratory alkalosis, respiratory failure requiring continued mechanical ventilatory support. 2. Encephalopathy felt to be mainly on the basis of anoxic injury with resulting cerebral vascular accidents (CVAs). 3. Seizure disorder secondary to the above. 4. Renal failure. 5. Urinary tract infection. 6. Sputum positive for Enterobacter cloacae. 7. DO NOT RESUSCITATE status. At this point, given her secretion issues, we will plan fiberoptic bronchoscopy. Will continue current antimicrobials. Given her mental status, no real further weaning can be achieved. As per my discussion with the family yesterday, they do not wish to proceed with tracheostomy. They will be here in the next several days and are more planning to proceed with extubation and comfort care. Will continue her current level of care pending their arrival. Overall, she remains critically ill. I left the bedside at 0900 hours. 40 minutes of critical care done with bedside not including procedures.
[2016-07-27] MEDS: ALBUTEROL SULFATE 2.5 MG/0.5 ML INH NEB SOLN NEB SCH ×4 (07:27→19:55)
--- NOTE | 2016-07-27 07:56 | IPN ---
DATE: 07/27/2016 Mrs. Cabrera has not had any major events since yesterday. She remains ventilated and unfortunately she remains with signs of significant ischemic brain injury. She is clearly alert, but there is no purposeful communication possible. No purposeful movements. Blood pressure 158/69, heart rate is in 80s. She is afebrile as of this morning. At midnight her temperature was 100. Saturation is 96% on 30% FiO2. Fluid balance yesterday was about 600 positive in spite of administered Lasix. Documented weight is 80.7 kg. She is alert, but I do not see any purposeful activity. Lungs are relatively clear. No crackles or rhonchi. Heart exam reveals regular rhythm. No gallop. There were no arrhythmias overnight. Abdomen is soft but obese, nontender. There is 1-2+ edema on both upper and lower extremities. Laboratory jefferson, potassium 4.9, BUN 87, creatinine 1.3, glucose 198 and CBC reveals hemoglobin 9.1, hematocrit 28, platelet count 452,000. ASSESSMENT/PLAN Mrs. Cabrera is a 71-year-old female who came to my office after approximately 2-3 weeks of progressively worsening dyspnea. She was in extreme shortness of breath on presentation, with administered oxygen she was able to speak full sentences. She did not have any chest discomfort. She was transported to the emergency room by ambulance and apparently shortly after presentation to the ER, she suffered bradyarrhythmic arrest. I suspect that it was principally caused by respiratory failure. She was successfully resuscitated by CPR lasted approximately 30 minutes and there appears to be a fairly significant amount of anoxic brain injury involved. Hemodynamically she has been relatively good as of last few days. I am going to give her a standing dose of diuretics as she is getting a large amount of intravenous preparations and feeding, which make her balance consistently positive and she is quite edematous. Ultimately, her prognosis will be determined by her neurological recovery. The communication with the family has been between critical care and neurology teams.
[2016-07-27] MEDS: levETIRAcetam INJection 1,500 MG in D5W 100 ML IV SCH ×2 (07:59→20:06)
[2016-07-27] MEDS: LACOSAMIDE 10MG/ML 20ML VIAL (VIMPAT) (C9254) IV SCH ×2 (08:00→20:08)
[2016-07-27] MEDS: PANTOPRAZOLE 40MG INJ (PROTONIX) (C9113) IV SCH (08:05)
[2016-07-27] MEDS: CARVedilol 12.5 MG TAB PO SCH ×2 (08:07→20:07)
[2016-07-27] MEDS: PHENYTOIN 100 MG/2 ML VIAL (J1165) IV SCH ×3 (08:08→20:08)
[2016-07-27] MEDS: CHLORHEXIDINE GLUCONATE 0.12 % 15ML UDC (PERIDEX ORAL RINSE) MT SCH ×2 (08:09→20:07)
[2016-07-27] MEDS: HEPARIN SOD (PORCINE) 5000 UNITS/ML VIAL SQ SCH ×2 (08:09→20:08)
[2016-07-27] MEDS: FUROSEMIDE 40 MG/4 ML VIAL (J1940) IV SCH ×2 (08:09→17:55)
[2016-07-27] MEDS: NYSTATIN 100,000 UNITS/GM TOPICAL PWD 15 GM TOP SCH ×2 (08:10→20:06)
[2016-07-27] MEDS: LevoFLOXacin IV 500 MG in APPROPRIATE DILUENT 1 EA IV SCH (08:10)
--- NOTE | 2016-07-27 09:25 | CCN ---
DATE: 07/27/2016 Overnight, the patient has had no significant neurologic recovery. There has been no evidence of further seizure activity. She remains on mechanical ventilation SIMV with pressure support, tidal volumes of 460, rate of 8, PEEP of 80, with FIO2 of 0.35. She is having spontaneous breaths on this. She wakens, but does not have purposeful eye movement or purposeful body movement. She is on tube feedings at 75 mL an hour of 1.2 Glucerna. PHYSICAL EXAMINATION: Temperature is 99.1, pulse of 85, respiratory rate 29, blood pressure 157/67, oxygen saturation is 95% on 0.35 FIO2. Ins and Outs: 3245 in and 2600 out, positive 645. General: The patient is laying in bed, initially closing her eyes. As I am checking for myoclonus, she opens her eyes. There is no evidence of purposeful movements. She does not flinch to snapping or loud sounds adjacent. HEENT: Pupils are equal, reactive to light. Corneals are intact. Mucous membranes are moist. Tongue is large. Endotracheal tube is in place. Neck is supple. No tracheal deviation. There is a left scar likely from prior CEA. No elevated JVP. No bruits were auscultated. On the chest wall, there is a left subclavian line without erythema or exudate, minimal old heme. Pulmonary: Upper airway rhonchi consistent with secretions in the endotracheal tube. No wheezes. No rales. Fairly good chest expansion. Cardiac: Distant. S1, S2, without audible murmur, rub or gallop. Currently, the patient is in sinus rhythm. Abdomen is soft, nontender, nondistended. Very hypoactive bowel sounds; however, the patient had a bowel movement yesterday. No discernible hepatosplenomegaly. Extremities: No cyanosis or clubbing. Thromboembolic deterrent stockings (TEDS) are in place. Neurologic: No myoclonus. No evidence of seizure activity. Eye movement and pupillary corneal reflex as mentioned above. Musculoskeletal: Normal for stated age. Skin: Pale without rash, jaundice or bruising. Chest x-ray today shows some blunting of the left with some cardiomegaly. No evidence of infiltrate. White blood cell count is elevated to 13.9, hemoglobin 9.1, hematocrit 28.4, platelet count of 452 with 86% neutrophilia on the differential. Sodium is 139, potassium 4.9, chloride 99, bicarb is 32, BUN is 87, creatinine is 1.3. Arterial blood gas shows a pH of 7.46, pCO2 of 41, pAO2 of 76 on 0.35 FiO2. INR of 1.24. IMPRESSION: 1. Cardiac arrest with associated bradycardia, now with anoxic brain injury. No evidence of significant neurologic recovery at this point in time. The patient's family is expected tomorrow to help with decision making process. No evidence of further cardiac injury. 2. Seizure. The patient is on multiple antiseizure medications due to persistent seizures, no evidence of further seizure activity currently. Will continue current medications as per neurology recommendations. 3. Leukocytosis. The patient has Enterobacter in her sputum and Enterococcus in her urine. She is currently on Levaquin for this. Will continue to monitor for other signs of infection.
--- NOTE | 2016-07-27 09:44 | REP ---
REASON: Followup respiratory failure. COMPARISON: Yesterday at 6:50 a.m. The tubes and lines are unchanged. The cardiomediastinal silhouette is unchanged. There is cardiomegaly. The technique utilized in obtaining the radiograph has magnified the cardiac silhouette and accentuated the interstitial markings. There is no significant change in the appearance of the lung torres. Mild left lower lobe opacities likely subsegmental atelectatic changes status quo. No new abnormal opacities have developed. IMPRESSION: No significant change with findings as described above. Signed by Yannick Barroso DO 07/27/2016 11:55 A
[2016-07-27] MEDS: LORazepam 2 MG/ML VIAL (J2060) IV PRN (17:55)
[2016-07-27] MEDS: ACETAMINOPHEN 325 MG/10.15 ML UDC NG PRN (18:30)
[2016-07-28] VITALS (25 sets, daily range): BP systolic 108–185; BP diastolic 53–79; O2SAT 94
[2016-07-28] MEDS: hydrALAZINE INJ 20 MG/ML VIAL IV SCH ×7 (02:53→22:49)
[2016-07-28 05:54] LABS: BASO % 0.3 % (0.0-1.0); EOS % 0.3 % (0.0-3.0); LARGE UNSTAINED CELL # 0.1 K/mm3 (0.0-0.4); LARGE UNSTAINED CELL % 1.2 % (0.0-4.0); LYMPH # 0.8 K/mm3 (1.5-4.5); LYMPH % 6.5 % (24.0-44.0); MEAN CORPUSCULAR HEMOGLOBIN 27.3 pg (27.0-33.0); MEAN CORPUSCULAR HGB CONC 31.1 g/dl (32.0-36.5); MEAN CORPUSCULAR VOLUME 87.6 fl (80.0-96.0); MONO # 0.6 K/mm3 (0.0-0.8); MONO % 4.7 % (0.0-5.0); NEUTROPHILS # 10.4 K/mm3 (1.8-7.7); NEUTROPHILS % 87.1 % (36.0-66.0); PLATELET COUNT, AUTOMATED 412 k/mm3 (150-450); RED CELL DISTRIBUTION WIDTH 15.8 % (11.5-14.5)
[2016-07-28 05:57] LABS: ABG BASE EXCESS 8.6 (-2.0-2.0); ABG HCO3 33.1 MEQ/L (22.0-26.0); ABG PARTIAL PRESSURE CO2 46.2 mmHg (35.0-45.0); ABG PARTIAL PRESSURE O2 92.2 mmHg (75.0-100.0); ABG STANDARD HCO3 32.3 MEQ/L (22.0-26.0); ABG TOTAL CO2 34.5 MEQ/L (23.0-31.0); ABG pH (ARTERIAL) 7.473 UNITS (7.350-7.450)
[2016-07-28] MEDS: HumaLOG INSULIN (NovoLOG) PER UNIT SC SCH ×3 (05:59→17:09)
[2016-07-28] MEDS: SODIUM CHLORIDE 0.9% INJ 10 ML SYR IV SCH ×3 (06:00→20:24)
[2016-07-28 06:13] LABS: ALBUMIN 2.2 GM/DL (3.2-5.2); ALBUMIN/GLOBULIN RATIO 0.54 (1.00-1.93); BILIRUBIN,TOTAL 0.3 MG/DL (0.2-1.0); CALCIUM LEVEL 8.4 MG/DL (8.8-10.2); CREATININE FOR GFR 1.26 MG/DL (0.55-1.02); GLOMERULAR FILTRATION RATE 44.4 (>39); PHOSPHORUS LEVEL 4.5 MG/DL (2.5-4.9); POTASSIUM SERUM 4.7 MEQ/L (3.5-5.1); TOTAL PROTEIN 6.3 GM/DL (6.4-8.2)
[2016-07-28] MEDS: FUROSEMIDE 40 MG/4 ML VIAL (J1940) IV SCH ×2 (08:13→16:57)
[2016-07-28] MEDS: LACOSAMIDE 10MG/ML 20ML VIAL (VIMPAT) (C9254) IV SCH ×2 (08:13→20:23)
[2016-07-28] MEDS: PANTOPRAZOLE 40MG INJ (PROTONIX) (C9113) IV SCH (08:13)
[2016-07-28] MEDS: HEPARIN SOD (PORCINE) 5000 UNITS/ML VIAL SQ SCH ×2 (08:13→20:22)
[2016-07-28] MEDS: PHENYTOIN 100 MG/2 ML VIAL (J1165) IV SCH ×3 (08:13→20:21)
[2016-07-28] MEDS: CHLORHEXIDINE GLUCONATE 0.12 % 15ML UDC (PERIDEX ORAL RINSE) MT SCH ×2 (08:14→20:23)
[2016-07-28] MEDS: LevoFLOXacin IV 500 MG in APPROPRIATE DILUENT 1 EA IV SCH (08:14)
[2016-07-28] MEDS: CARVedilol 12.5 MG TAB PO SCH ×2 (08:14→20:23)
[2016-07-28] MEDS: levETIRAcetam INJection 1,500 MG in D5W 100 ML IV SCH ×2 (08:14→20:21)
[2016-07-28] MEDS: NYSTATIN 100,000 UNITS/GM TOPICAL PWD 15 GM TOP SCH ×2 (08:15→20:24)
--- NOTE | 2016-07-28 08:24 | REP ---
CHEST, ONE VIEW: HISTORY: Respiratory failure. COMPARISON: 07/27/2016 A minimal increase in interstitial markings is present in the lungs consistent with chronic interstitial fibrosis. The cardiac silhouette is enlarged. The pulmonary vasculature is normal in appearance. An ET tube, and NG tube, and central line are present. IMPRESSION: 1. Chronic interstitial fibrosis. 2. Cardiomegaly. Signed by Arturo Huddleston MD 07/28/2016 09:02 A
[2016-07-28] MEDS: ALBUTEROL SULFATE 2.5 MG/0.5 ML INH NEB SOLN NEB SCH ×4 (08:30→20:37)
--- NOTE | 2016-07-28 10:05 | CCN ---
DATE: 07/28/2016 I again attended Vianney Cabrera. She remains intubated and mechanically ventilated. She has been off sedation for several days now with no improvement in her mental status. Maximum temperature (Tmax) 100.4. Blood pressure 130 [id number]. Heart rate generally in the 80s to 90s with a sinus mechanism. Respiratory 16 to the low 20s without accessory muscle use. Input and output for 24 hours ending at midnight last night 2540 mL in with 1995 mL out. Most recent laboratories show a white blood cell count of 12.0, hemoglobin 8.6, platelet count 412,000. Differential shows 87% segmented neutrophils, no bands. Sodium 142, potassium 4.7, chloride 103, CO2 31, BUN 78, creatinine 1.26. Glucose 221. Transaminases show an AST of 49, ALT of 47, alkaline phosphatase of 90, albumin 2.2. Most recent arterial blood gas done on an SIMV of 8, tidal volume 460, PEEP of 8, pressure support of 12, FiO2 of 35% has a pH of 7.473, pCO2 of 46.2 and a pO2 of 92.2 with saturation 97.2%. Chest x-ray reviewed from this morning shows lines and tubes in good position. No new findings. I do believe the left base is less dense and I am able to see a diaphragm this morning. On exam, vital signs as outlined above. She will open her eyes to noxious stimuli but shows no signs of interaction. She does not tract movements in the room. She does not respond to voice. She does breath spontaneously. There is somewhat of a cough. Pupils do react. Membranes are moist. Sclerae are clear. Trachea is in the midline. Chest is fairly clear anteriorly. Expansion is symmetric. There is some dependent crackles especially at the bases in the early inspiratory phase. Cardiac exam is regular. Her 2/6 murmur is unchanged. Peripheral pulses palpable. Anasarca is unchanged. Abdomen mildly distended. Active bowel sounds. No convincing organomegaly or masses. Extremities show no obvious cyanosis or clubbing. Neurologically as outlined above. IMPRESSION: 1. Respiratory failure requiring mechanical ventilation. 2. Anoxic encephalopathy. 3. Bradycardic arrest with resulting CVAs and seizures. 4. Urinary tract infection (UTI). 5. Sputum with Enterobacter. 6. Underlying pre-existing hypertension. 7. Renal failure, improving. 8. DO NOT RESUSCITATE status. At this point, she shows no improvement in her neurologic status and is unlikely that we will see much more progress in that regard. I had spoken with neurology earlier in the week and they clearly feel that at this point, most likely that she will persist in a chronic vegetative state. In discussions with the family that is not the way they wish to proceed as they feel strongly the patient would not want that. They reportedly are coming in today. In the interim, we will continue her current level of antimicrobials as both the organisms in her urine and sputum are sensitive to the Levaquin, which she is on. Fever curve is less. Ulcerative, deep venous thrombosis (DVT) prophylaxis are in place. She is tolerating her tube feeds at goal. At this point, we will proceed with our current level of supportive care. She is DO NOT RESUSCITATE per family request. My last discussion really sounded as though they wished to proceed with comfort measures care after their arrival but we will await that discussion when they arrive. Further recommendations will be made in the progress records as new information becomes available.
--- NOTE | 2016-07-28 10:54 | IPN ---
DATE: 07/28/2016 Mrs. Cabrera unfortunately is not getting better. Even though her vital signs remain stable and the ventilatory status is quite satisfactory, her neurologic status is not improving. She appears to be in vegetative state. Vital signs: Blood pressure runs from 140s to 160s systolic. Heart rate is around 90. She had maximum temperature (Tmax) yesterday 100.4. Saturation is in high 90s on 30% FiO2. Her fluid balance yesterday was recorded about half a liter positive. Weight has not been documented yet this morning. She open eyes and makes moves with her head, but I was not able to establish any communication. There is no response to verbal or painful stimuli. Lungs are reasonably clear to auscultation with good air movement. Heart exam reveals regular rhythm. Abdomen is soft but distended. Bowel sounds are present. There is about 1+ edema that is diffuse. Laboratory jefferson: Hemoglobin 8.6, hematocrit 27, platelet count 412,000. Basic metabolic panel essentially normal but for creatinine 1.3 and glucose 220. Albumin is 2.2. Chest x-ray reveals appropriate position of endotracheal tube (ET) tube and lines and still appears to be somewhat congested with probable at least small bilateral effusions. ASSESSMENT AND PLAN: Mrs. Cabrera is a 71-year-old female who presented with progressive dyspnea and on arrival to emergency room developed bradycardic arrest. I suspect that it was secondary to respiratory failure. After approximately 30 minutes of cardiopulmonary resuscitation (CPR), there was a return of spontaneous circulation. It looks like that hemodynamically she is now reasonably well compensated, but unfortunately her mental status is not improving and she has significant anoxic brain injury. We are awaiting arrival of her niece, who is her closest relative and the expectation is that she will be extubated and made comfort measures. I agree with the decision at this point. I see very little chance of meaningful neurologic recovery.
[2016-07-29] VITALS (14 sets, daily range): BP systolic 118–192; BP diastolic 56–83; O2SAT 95–97
[2016-07-29] MEDS: HumaLOG INSULIN (NovoLOG) PER UNIT SC SCH ×3 (00:53→12:00)
[2016-07-29] MEDS: MORPHINE 2 MG/ML 1ML SYRINGE IV PRN ×7 (02:34→16:31)
[2016-07-29] MEDS: hydrALAZINE INJ 20 MG/ML VIAL IV SCH ×3 (02:39→11:00)
[2016-07-29] MEDS: SODIUM CHLORIDE 0.9% INJ 10 ML SYR IV SCH ×3 (06:02→22:07)
[2016-07-29] MEDS: ALBUTEROL SULFATE 2.5 MG/0.5 ML INH NEB SOLN NEB SCH ×3 (07:55→16:00)
[2016-07-29] MEDS: CHLORHEXIDINE GLUCONATE 0.12 % 15ML UDC (PERIDEX ORAL RINSE) MT SCH (09:42)
[2016-07-29] MEDS: HEPARIN SOD (PORCINE) 5000 UNITS/ML VIAL SQ SCH (09:43)
[2016-07-29] MEDS: CARVedilol 12.5 MG TAB PO SCH (09:43)
[2016-07-29] MEDS: FUROSEMIDE 40 MG/4 ML VIAL (J1940) IV SCH (09:44)
[2016-07-29] MEDS: PHENYTOIN 100 MG/2 ML VIAL (J1165) IV SCH ×3 (09:44→20:59)
[2016-07-29] MEDS: levETIRAcetam INJection 1,500 MG in D5W 100 ML IV SCH ×2 (09:44→20:59)
[2016-07-29] MEDS: LevoFLOXacin IV 500 MG in APPROPRIATE DILUENT 1 EA IV SCH (09:44)
[2016-07-29] MEDS: LACOSAMIDE 10MG/ML 20ML VIAL (VIMPAT) (C9254) IV SCH ×2 (09:45→22:07)
[2016-07-29] MEDS: PANTOPRAZOLE 40MG INJ (PROTONIX) (C9113) IV SCH (09:45)
[2016-07-29] MEDS: NYSTATIN 100,000 UNITS/GM TOPICAL PWD 15 GM TOP SCH (09:46)
--- NOTE | 2016-07-29 10:34 | REP ---
PORTABLE CHEST, ONE VIEW: HISTORY: Respiratory failure. COMPARISON: 07/28/2016 A minimal increase in interstitial markings is present in the lungs, consistent with chronic interstitial fibrosis. Increased density is present in the left lower lobe consistent with atelectasis or infiltrate. The cardiac silhouette is enlarged. The pulmonary vasculature is normal in appearance. An ET tube, NG tube, and central line are present. IMPRESSION: 1. Chronic interstitial fibrosis. 2. Left lower lobe atelectasis or infiltrate. 3. Cardiomegaly. Signed by Arturo Huddleston MD 07/29/2016 10:40 A
--- NOTE | 2016-07-29 10:35 | CCN ---
DATE OF VISIT: 07/29/2016 I again attended Ms. Cabrera here in intensive care unit. Patient has been examined and chart is reviewed. Maximum temperature (Tmax) overnight 100.2, blood pressure 130-160 systolic, heart rate generally in the 80s to 90s, respiratory generally in the 20s to low 30s without accessory muscle use. Input and output midnight to midnight: 2780 mL in with 2830 mL out. No new laboratories this morning. Medication list has been reviewed. She remains on ulcerative and deep venous thrombosis (DVT) prophylaxis, as well as Levaquin for her urine and sputum cultures. Chest x-ray done this morning shows lines and tubes in good position. No new findings. On exam, she does spontaneously open her eyes but has absolutely no response to stimulus other than occasionally grimace to noxious stimuli. She does over breathe the ventilator. No spontaneous movement of her extremities. Some intermittent tremulousness of the right upper extremity this morning. She remains on her anticonvulsants. Chest is clear anteriorly. There is some faint crackles in the early inspiratory phase dependently. No convincing rhonchus or rubs. Cardiac exam is generally regular. Peripheral pulses are diminshed. Her diffuse edema is unchanged. Abdomen does show some bowel sounds. No obvious organomegaly or masses. Extremities without cyanosis or clubbing. Neurologically, as outlined above. IMPRESSION: 1. Respiratory failure requiring mechanical ventilatory support, multifactorial. 2. Anoxic brain injury with encephalopathy, CVAs and seizures. 3. Atherosclerotic cerebrovascular disease. 4. Renal failure. 5. DO NOT RESUSCITATE status per family request. 6. Urinary tract infection (UTI). 7. Sputum with Enterobacter. RECOMMENDATIONS: The family was here yesterday and confirmed with nursing staff the plans for withdrawal support probably later this morning. They are due in shortly. At this point, we will continue current level of supportive care. I will have another discussion with them regarding the details of withdrawal. Likely for comfort, we will continue her anticonvulsants. Per my previous discussions, the family was undecided whether or not they wished to continue tube feedings. Currently, she has an orogastric tube in place and continued feeding would require placement of a nasogastric tube, and I will discuss with them whether or not that is something that they would desire. Her niece who has been making decisions was clear with me previously that if the patient was unable to return to her full level of function she would not wish to be continually supported. I await their arrival. We will continue as outlined above prior to that.
--- NOTE | 2016-07-29 11:19 | CCN ---
DATE: 07/29/2016 The family is all now here, including Lluvia, the daughter of the healthcare proxy, adopted daughter, and some other family members. I had a very lengthy discussion with them. They are in full agreement that given her status the patient would not have wanted to continue her current level of intervention and they are all very comfortable with withdrawal of care and comfort measures. They do not wish to have an additional tube placed for tube feeding. We will continue her anticonvulsants. We will assure comfort. They wish pastoral services before proceeding and those arrangements have been made. I have spoken at length as well with Dr. Saeed, who is aware. At this point, after pastoral services arrive, we will proceed with extubation and institution of comfort measures care.
[2016-07-29] MEDS: LORazepam 2 MG/ML VIAL (J2060) IV PRN ×4 (12:37→16:31)
[2016-07-29] MEDS ORDERED: SCOPOLAMINE 1.5 MG TRANSDERMAL TD PRN (13:15)
[2016-07-30] MEDS: MORPHINE 2 MG/ML 1ML SYRINGE IV PRN ×2 (00:11→00:53)
--- NOTE | 2016-07-30 15:39 | DSES ---
DATE OF ADMISSION: 07/16/2016 DATE OF DISCHARGE: 07/30/2016 DESCRIPTION OF HOSPITALIZATION: Vianney was admitted to the hospital after a cardiac arrest. She was found to have poor perfusion, bradycardia, was unresponsive, and cardiopulmonary resuscitation (CPR) and aggressive resuscitation ensued. She was intubated and placed on mechanical ventilation. However, despite all efforts she had no neurologic recovery, acute anoxic brain injury was suspected. Imaging was performed in the form of a head CT on 07/19/2016, which showed small infarctions in the cerebellum, left temporal, and right parietal lobes. Patient was on mechanical ventilation and had no return of neurologic function. After a discussion with her family, it was decided to remove aggressive measures and mechanical ventilation and to continue with comfort measures only. Patient within 24 hours of her extubation. DISCHARGE DIAGNOSES: 1. Cardiopulmonary arrest. 2. Anoxic brain injury. 3. Seizures. 4. CVA. 5. Atherosclerotic cerebrovascular disease. 6. Renal failure. 7. Urinary tract infection. 8. Tracheitis with Enterobacter culture positive. No autopsy was requested. Body was released to [facility] [place].
== END 2016-07-30 01:53 | disposition expired | DRG 207 ==
LOC: M ED 15:48 → M ED INP 15:49 → M ICU 15:51 → M MSPAV 07-29 21:37
PROVIDERS: ADMIT Internal Medicine Pulmonary Disease; ATTEND Internal Medicine Pulmonary Disease
PROC: 5A1955Z Respiratory Ventilation, Greater than 96 Consecutive Hours (ICD-10-PCS; principal; 2016-07-16)
PROC: 03HB33Z Insertion of Infusion Device into Right Radial Artery, Percutaneous Approach (ICD-10-PCS; 2016-07-16)
PROC: 0BJ08ZZ Inspection of Tracheobronchial Tree, Via Natural or Artificial Opening Endoscopic (ICD-10-PCS; 2016-07-16)
PROC: 05H533Z Insertion of Infusion Device into Right Subclavian Vein, Percutaneous Approach (ICD-10-PCS; 2016-07-16)
PROC: 30233N1 Transfusion of Nonautologous Red Blood Cells into Peripheral Vein, Percutaneous Approach (ICD-10-PCS; 2016-07-21)
PROC: 05H633Z Insertion of Infusion Device into Left Subclavian Vein, Percutaneous Approach (ICD-10-PCS; 2016-07-23)
DX: J96.01 Acute respiratory failure with hypoxia (principal); I63.8 Other cerebral infarction; G93.40 Encephalopathy, unspecified; N39.0 Urinary tract infection, site not specified; G93.1 Anoxic brain damage, not elsewhere classified; G40.509 Epileptic seizures related to external causes, not intractable, without status epilepticus; J96.02 Acute respiratory failure with hypercapnia; Z51.5 Encounter for palliative care; I67.2 Cerebral atherosclerosis; I44.7 Left bundle-branch block, unspecified; Z79.82 Long term (current) use of aspirin; Z79.899 Other long term (current) drug therapy; D64.9 Anemia, unspecified; Z66 Do not resuscitate